=== PATIENT | male | born 1935 | race Caucasian/White ===

== ENCOUNTER 2021-02-03 19:13 | Inpatient (IN) | payer MEDICARE, BC ==
--- NOTE | 2021-02-03 20:03 | ED ---
General Adult HPI - General Chief complaint: Shortness of Breath Stated complaint: WILLIAM Time Seen by Provider: 02/03/21 19:14 Source: patient, family, RN notes reviewed Mode of arrival: ambulatory Limitations: no limitations - History of Present Illness Initial comments: Patient is a pleasant 86-year-old male presenting to the emergency department with difficulty in breathing. Onset of symptoms was just today, several hours ago. No cough. No fever. No chest pain. No leg pain or leg swelling. No history of similar symptoms previously. Patient does have history of heart valve replacement, years ago. Patient is somewhat a poor historian. - Related Data Allergies Allergy/AdvReac Type Severity Reaction Status Date / Time bee venom protein (honey bee) Allergy Severe Swelling Verified 02/03/21 20:11 Review of Systems ROS Statement: Those systems with pertinent positive or pertinent negative responses have been documented in the HPI. ROS Other: All systems not noted in ROS Statement are negative. Constitutional: Denies: fever Eyes: Denies: eye pain ENT: Denies: ear pain Respiratory: Reports: dyspnea. Denies: cough Cardiovascular: Denies: chest pain Endocrine: Reports: fatigue Gastrointestinal: Denies: abdominal pain Genitourinary: Denies: urgency Musculoskeletal: Denies: back pain Skin: Denies: rash Neurological: Denies: weakness Past Medical History Past Medical History: Cancer, Diabetes Mellitus, Hyperlipidemia, Hypertension, Renal Disease Additional Past Medical History / Comment(s): Bladder cancer History of Any Multi-Drug Resistant Organisms: Unobtainable Past Surgical History: Pacemaker Additional Past Surgical History / Comment(s): Abdominal Aortic Aneurysm Past Psychological History: No Psychological Hx Reported Smoking Status: Current every day smoker Past Alcohol Use History: None Reported Past Drug Use History: None Reported General Exam Limitations: no limitations General appearance: alert, in no apparent distress Head exam: Present: normocephalic Eye exam: Present: normal appearance Neck exam: Present: normal inspection Respiratory exam: Present: rales (Bilateral bases) Cardiovascular Exam: Present: regular rate, normal rhythm GI/Abdominal exam: Present: soft. Absent: tenderness Extremities exam: Present: normal inspection. Absent: pedal edema, calf tenderness Neurological exam: Present: alert Psychiatric exam: Present: normal affect, normal mood Skin exam: Present: normal color Course Vital Signs 02/03/21 19:25 Temperature 97.6 F Pulse Rate 85 Respiratory 20 Rate Blood Pressure 155/75 O2 Sat by Pulse 86 L Oximetry EKG Findings - EKG Comments: EKG Findings:: Paced rhythm with a rate of 85. QRS 162. QT 444. QTC 522 left eye axis. Wide QRS complex. Nonspecific ST-T. Medical Decision Making - Medical Decision Making Patient reevaluated and updated. Family present. Case also discussed with practitioner Justine, who will admit covering for Dr. Pack, covering for hospital call. - Lab Data Result diagrams: 02/03/21 20:16 02/03/21 20:16 Lab Results 02/03/21 02/03/21 02/03/21 Range/Units 20:16 20:16 20:16 WBC 8.1 (3.8-10.6) k/uL RBC 3.22 L (4.30-5.90) m/uL Hgb 10.4 L (13.0-17.5) gm/dL Hct 32.2 L (39.0-53.0) % MCV 100.0 (80.0-100.0) fL MCH 32.4 (25.0-35.0) pg MCHC 32.4 (31.0-37.0) g/dL RDW 14.1 (11.5-15.5) % Plt Count 179 (150-450) k/uL MPV 8.0 Neutrophils % 86 % Lymphocytes % 4 % Monocytes % 5 % Eosinophils % 4 % Basophils % 0 % Neutrophils # 7.0 (1.3-7.7) k/uL Lymphocytes # 0.4 L (1.0-4.8) k/uL Monocytes # 0.4 (0-1.0) k/uL Eosinophils # 0.3 (0-0.7) k/uL Basophils # 0.0 (0-0.2) k/uL PT 9.6 (9.0-12.0) sec INR 0.9 (<1.2) APTT 32.8 H (22.0-30.0) sec D-Dimer 4.97 H (<0.60) mg/L FEU Sodium 137 (137-145) mmol/L Potassium 5.1 (3.5-5.1) mmol/L Chloride 113 H (98-107) mmol/L Carbon Dioxide 13 L (22-30) mmol/L Anion Gap 11 mmol/L BUN 64 H (9-20) mg/dL Creatinine 4.05 H (0.66-1.25) mg/dL Est GFR (CKD-EPI)AfAm 15 (>60 ml/min/1.73 sqM) Est GFR (CKD-EPI)NonAf 13 (>60 ml/min/1.73 sqM) Glucose 193 H (74-99) mg/dL Plasma Lactic Acid Michael (0.7-2.0) mmol/L Calcium 9.2 (8.4-10.2) mg/dL Total Bilirubin 0.4 (0.2-1.3) mg/dL AST 17 (17-59) U/L ALT 15 (4-49) U/L Alkaline Phosphatase 101 (38-126) U/L Troponin I (0.000-0.034) ng/mL NT-Pro-B Natriuret Pep pg/mL Total Protein 7.1 (6.3-8.2) g/dL Albumin 3.9 (3.5-5.0) g/dL Coronavirus (PCR) (Not Detectd) 02/03/21 02/03/21 02/03/21 Range/Units 20:16 20:16 20:16 WBC (3.8-10.6) k/uL RBC (4.30-5.90) m/uL Hgb (13.0-17.5) gm/dL Hct (39.0-53.0) % MCV (80.0-100.0) fL MCH (25.0-35.0) pg MCHC (31.0-37.0) g/dL RDW (11.5-15.5) % Plt Count (150-450) k/uL MPV Neutrophils % % Lymphocytes % % Monocytes % % Eosinophils % % Basophils % % Neutrophils # (1.3-7.7) k/uL Lymphocytes # (1.0-4.8) k/uL Monocytes # (0-1.0) k/uL Eosinophils # (0-0.7) k/uL Basophils # (0-0.2) k/uL PT (9.0-12.0) sec INR (<1.2) APTT (22.0-30.0) sec D-Dimer (<0.60) mg/L FEU Sodium (137-145) mmol/L Potassium (3.5-5.1) mmol/L Chloride (98-107) mmol/L Carbon Dioxide (22-30) mmol/L Anion Gap mmol/L BUN (9-20) mg/dL Creatinine (0.66-1.25) mg/dL Est GFR (CKD-EPI)AfAm (>60 ml/min/1.73 sqM) Est GFR (CKD-EPI)NonAf (>60 ml/min/1.73 sqM) Glucose (74-99) mg/dL Plasma Lactic Acid Michael 1.0 (0.7-2.0) mmol/L Calcium (8.4-10.2) mg/dL Total Bilirubin (0.2-1.3) mg/dL AST (17-59) U/L ALT (4-49) U/L Alkaline Phosphatase (38-126) U/L Troponin I 0.047 H* (0.000-0.034) ng/mL NT-Pro-B Natriuret Pep 54106 pg/mL Total Protein (6.3-8.2) g/dL Albumin (3.5-5.0) g/dL Coronavirus (PCR) (Not Detectd) 02/03/21 Range/Units 20:16 WBC (3.8-10.6) k/uL RBC (4.30-5.90) m/uL Hgb (13.0-17.5) gm/dL Hct (39.0-53.0) % MCV (80.0-100.0) fL MCH (25.0-35.0) pg MCHC (31.0-37.0) g/dL RDW (11.5-15.5) % Plt Count (150-450) k/uL MPV Neutrophils % % Lymphocytes % % Monocytes % % Eosinophils % % Basophils % % Neutrophils # (1.3-7.7) k/uL Lymphocytes # (1.0-4.8) k/uL Monocytes # (0-1.0) k/uL Eosinophils # (0-0.7) k/uL Basophils # (0-0.2) k/uL PT (9.0-12.0) sec INR (<1.2) APTT (22.0-30.0) sec D-Dimer (<0.60) mg/L FEU Sodium (137-145) mmol/L Potassium (3.5-5.1) mmol/L Chloride (98-107) mmol/L Carbon Dioxide (22-30) mmol/L Anion Gap mmol/L BUN (9-20) mg/dL Creatinine (0.66-1.25) mg/dL Est GFR (CKD-EPI)AfAm (>60 ml/min/1.73 sqM) Est GFR (CKD-EPI)NonAf (>60 ml/min/1.73 sqM) Glucose (74-99) mg/dL Plasma Lactic Acid Michael (0.7-2.0) mmol/L Calcium (8.4-10.2) mg/dL Total Bilirubin (0.2-1.3) mg/dL AST (17-59) U/L ALT (4-49) U/L Alkaline Phosphatase (38-126) U/L Troponin I (0.000-0.034) ng/mL NT-Pro-B Natriuret Pep pg/mL Total Protein (6.3-8.2) g/dL Albumin (3.5-5.0) g/dL Coronavirus (PCR) Not Detected (Not Detectd) - Radiology Data Radiology results: image reviewed (Chest x-ray shows COPD. Lower lobe infiltrates. Possible pneumonia versus heart failure) Disposition Clinical Impression: Congestive heart failure Disposition: ADMITTED IP TO THIS HOSP Is patient prescribed a controlled substance at d/c from ED?: No Referrals: Nonstaff,Physician [Primary Care Provider] - 1-2 days Decision Time: 21:49
[2021-02-03 20:27] LABS: Basophils % (A) 0 %; Eosinophils # (A) 0.3 k/uL (0-0.7); Eosinophils % (A) 4 %; HCT 32.2 % (39.0-53.0); HGB 10.4 gm/dL (13.0-17.5); Lymphocytes # (A) 0.4 k/uL (1.0-4.8); Lymphocytes % (A) 4 %; MCH 32.4 pg (25.0-35.0); MCHC 32.4 g/dL (31.0-37.0); Monocytes # (A) 0.4 k/uL (0-1.0); Monocytes % (A) 5 %; Neutrophils % (A) 86 %; Platelet Count 179 k/uL (150-450); RBC 3.22 m/uL (4.30-5.90); RDW 14.1 % (11.5-15.5); WBC 8.1 k/uL (3.8-10.6)
[2021-02-03 20:38] LABS: Albumin 3.9 g/dL (3.5-5.0); Calcium 9.2 mg/dL (8.4-10.2); Potassium 5.1 mmol/L (3.5-5.1); Total Bilirubin 0.4 mg/dL (0.2-1.3); Total Protein 7.1 g/dL (6.3-8.2)
[2021-02-03 20:44] LABS: INR 0.9 (<1.2); Partial Thromboplastin Time 32.8 sec (22.0-30.0); Prothrombin Time 9.6 sec (9.0-12.0)
--- NOTE | 2021-02-03 21:22 | XR ---
EXAMINATION TYPE: XR chest 2V DATE OF EXAM: 02/03/2021 COMPARISON: NONE HISTORY: Difficulty breathing TECHNIQUE: 2 views FINDINGS: There is some patchy interstitial and airspace infiltrate in the lower lung lizarraga. Heart s ize is fairly normal. There are sternal wires. There is left axillary pacemaker. There is mild flatte matt of the diaphragm. IMPRESSION: COPD. Lower lobe pulmonary mild infiltrates. This is probably some mild pneumonia. Mild h eart failure not excluded.
[2021-02-03] MEDS ORDERED: ASPIRIN 325 MG TAB PO STA (21:49)
[2021-02-03] MEDS ORDERED: HEPARIN SODIUM 1,000 UN/ML (10ML VL) IV PRN (21:54)
[2021-02-03] MEDS ORDERED: HEPARIN SODIUM 1,000 UN/ML (10ML VL) IV ONE (21:54)
[2021-02-03] MEDS ORDERED: cefTRIAXone IN SWFI 1,000 MG/10 ML SYRINGE IVP STA (21:56)
[2021-02-03] MEDS ORDERED: HEPARIN SOD,PORK IN 0.45% NACL 25,000 UNIT in 0.45% NACL 1 250ML.BAG IV SCH (22:00)
[2021-02-03] MEDS: NITROGLYCERIN OINT 1 INCH/GM PACKET TOPICAL SCH (22:42)
[2021-02-03] MEDS: FUROSEMIDE 10 MG/ML 4 ML VIAL IV SCH (22:45)
[2021-02-04] MEDS: FUROSEMIDE 10 MG/ML 4 ML VIAL IV SCH ×2 (05:45→20:46)
[2021-02-04] MEDS: ASPIRIN 325 MG TAB PO SCH (09:20)
[2021-02-04] MEDS: NITROGLYCERIN OINT 1 INCH/GM PACKET TOPICAL SCH ×4 (09:20→20:46)
--- NOTE | 2021-02-04 09:27 | NM ---
EXAMINATION TYPE: NM pul vent and perfuse DATE OF EXAM: 02/04/2021 COMPARISON: NONE HISTORY: Shortness of breath TECHNIQUE: Utilizing inhalation of 68.1 mCi Tc 99m DTPA aerosol and intravenous injection of 5 mCi o f Tc 99m MAA, ventilation and perfusion images are acquired post injection in multiple projections. FINDINGS: There is a large matched ventilation/perfusion defect in the right upper lobe. There are a few scatte red smaller matched defects bilaterally. IMPRESSION: Nondiagnostic or low to intermediate probability of pulmonary embolism.
[2021-02-04 12:01] LABS: Basophils % (A) 0 %; Eosinophils # (A) 0.3 k/uL (0-0.7); Eosinophils % (A) 4 %; HCT 30.5 % (39.0-53.0); HGB 9.6 gm/dL (13.0-17.5); Lymphocytes # (A) 0.4 k/uL (1.0-4.8); Lymphocytes % (A) 5 %; MCH 31.9 pg (25.0-35.0); MCHC 31.5 g/dL (31.0-37.0); MCV 101.5 fL (80.0-100.0); Macrocytosis Slight; Mean Platelet Volume 8.3; Monocytes # (A) 0.4 k/uL (0-1.0); Monocytes % (A) 5 %; Neutrophils # (A) 6.1 k/uL (1.3-7.7); Neutrophils % (A) 84 %; Platelet Count 183 k/uL (150-450); RDW 14.2 % (11.5-15.5); WBC 7.3 k/uL (3.8-10.6)
[2021-02-04 13:01] VITALS: BMI 25.8
[2021-02-04] MEDS ORDERED: ACETAMINOPHEN TAB 325 MG TAB PO PRN (13:11)
[2021-02-04 13:14] LABS: Calcium 8.8 mg/dL (8.4-10.2); Potassium 4.8 mmol/L (3.5-5.1)
[2021-02-04] MEDS ORDERED: traMADol 50 MG TAB PO PRN (13:17)
[2021-02-04] MEDS ORDERED: MELATONIN 5 MG TABLET PO PRN (13:18)
[2021-02-04] MEDS: DEXTROSE 5% IN WATER 1,000 ML with SODIUM BICARB (1 MEQ/ML) 150 ML IV SCH (13:36)
[2021-02-04] MEDS: METOPROLOL TARTRATE 50 MG TAB PO SCH ×2 (13:42→20:46)
--- NOTE | 2021-02-04 14:39 | CONS ---
CONSULTATION REASON FOR CONSULT: Renal failure. HISTORY OF PRESENT ILLNESS: Patient is an 86-year-old male with CKD stage 4, being followed out of [facility]. The patient was admitted to the hospital with complaints of shortness of breath. He denied any fevers, chills or cough. The chest x-ray showed possible pneumonia and evidence of pulmonary vascular congestion. Patient has received IV Lasix and he states he is feeling much better. His troponin has been elevated at 0.05 and 0.069. The patient's CO2 was at 13. He denied any significant diarrhea prior to admission. I do not see sodium bicarb on his home med list. The patient states that he has discussed dialysis before, but he is not keen on it given his advanced age. At this time, we are not sure of his previous creatinine as we do not have any labs available in the computer. Serum creatinine yesterday was 4.0 with CO2 of 13 and potassium of 5.1. The patient states he is voiding. PAST MEDICAL HISTORY: Significant for type 2 diabetes, hyperlipidemia, hypertension, history of bladder cancer, history of pacemaker placement. SOCIAL HISTORY: Positive for smoking. No history of drug abuse or alcohol abuse. MEDICATIONS: Medications prior to admission included: Zyloprim, Toprol, Pyridium, Norvasc, Januvia, vitamin D3, insulin and Detrol. EXAMINATION: Patient is comfortable, awake. He is not in any acute distress. Blood pressure 133/69, heart rate 86 per minute. He is afebrile. Examination of the heart S1, S2. Examination of lungs decreased breath sounds at the bases. Abdomen is soft, nontender. Examination of the lower extremities shows 1+ edema bilaterally. PERFUME COMPOUNDER exam is grossly intact. LABS: Show sodium 137, potassium 5.1, chloride 113, CO2 is 13, BUN 64, creatinine 4.05, hemoglobin 10.4 from 02/03/2021, troponin 0.047, PCR for alanis virus not detected. ASSESSMENT: 1. Chronic kidney disease stage 4, baseline creatinine not known. The patient follows with Dr. Villagomez out of [facility]. 2. Metabolic acidosis associated with advanced renal failure. We will start patient on sodium bicarb drip. He is not maintained on oral sodium bicarb at home. 3. Possible acute kidney injury, cardiorenal. 4. Congestive heart failure volume overload. Continue with IV Lasix. Decrease dose to q.12 hours. 5. Anemia of chronic disease. PLAN: Decrease Lasix to q.12 hours. Repeat labs today. Add IV bicarb at 50 mL an hour and repeat labs in a.m. The patient is not too keen on renal replacement therapy. However, he is advised to followup visit with his primary cable stretcher and tester, post discharge to discuss renal replacement therapy. No acute indication for starting dialysis. MMODL / IJN: [id number] /
--- NOTE | 2021-02-04 15:07 | P.HPIM ---
History of Present Illness Patient is a pleasant 81-year-old male with history of chronic kidney disease stage IV came in with compensative shortness of breath which has been going on for couple days without any fever chills patient denied any cough. Patient had a chest x-ray which showed possibility of CHF there is infiltrate in the lower lung lizarraga because of which there is a concern about pneumonia because of which I'm obtaining a pro-calcitonin level although weakly patient doesn't appear to have pneumonia. has a minimally elevated troponin and patient bioprosthetic aortic valve replacement in the past. Patient is not aware of history of congestive heart failure patient bicarbonate is extremely low because of which patient is receiving IV bicarbonate supplementation along with IV Lasix patient doesn't have any significant JVD or pedal edema but does have highly elevated BNP of around 22,000. Patient is presently on high flow oxygen patient does have a pacemaker. REVIEW OF SYSTEMS: CONSTITUTIONAL: No fever, no malaise, no fatigue. HEENT: No recent visual problems or hearing problems. Denied any sore throat. CARDIOVASCULAR: No chest pain, orthopnea, PND, no palpitations, no syncope. PULMONARY: As mentioned in HPI GASTROINTESTINAL: No diarrhea, no nausea, no vomiting, no abdominal pain. NEUROLOGICAL: No headaches, no weakness, no numbness. HEMATOLOGICAL: Denies any bleeding or petechiae. GENITOURINARY: Denies any burning micturition, frequency, or urgency. MUSCULOSKELETAL/RHEUMATOLOGICAL: Denies any joint pain, swelling, or any muscle pain. ENDOCRINE: Denies any polyuria or polydipsia. The rest of the 14-point review of systems is negative. PHYSICAL EXAMINATION: GENERAL: The patient is alert and oriented x3, not in any acute distress. Well developed, well nourished. HEENT: Pupils are round and equally reacting to light. EOMI. No scleral icterus. No conjunctival pallor. Normocephalic, atraumatic. No pharyngeal erythema. No thyromegaly. CARDIOVASCULAR: S1 and S2 present. No murmurs, rubs, or gallops. PULMONARY: Chest is clear to auscultation, no wheezing or crackles. ABDOMEN: Soft, nontender, nondistended, normoactive bowel sounds. No palpable organomegaly. MUSCULOSKELETAL: No joint swelling or deformity. EXTREMITIES: No cyanosis, clubbing, or pedal edema. NEUROLOGICAL: Gross neurological examination did not reveal any focal deficits. SKIN: No rashes. Assessment and plan -Acute hypoxic respiratory failure requiring 15 L of oxygen/nonrebreather. Patient most probably has a start failure exacerbation no clinical evidence of pneumonia will obtain a level patient will be continued on iv lasix. -metabolic acidosis secondary to renal failure chronic kidney disease patient is on bicarbonate supplementation iv -ulcerative cardiac renal syndrome -Congestive heart failure: EF is unknown will obtain an echocardiogram continue with IV Lasix -Type 2 diabetes mellitus -Hyperlipidemia -Hypertension -Diabetic nephropathy -Nicotine use: Counseling was provided DVT prophylaxis: Subcutaneous heparin Past Medical History Past Medical History: Cancer, Diabetes Mellitus, Hyperlipidemia, Hypertension, Renal Disease Additional Past Medical History / Comment(s): Bladder cancer History of Any Multi-Drug Resistant Organisms: Unobtainable Past Surgical History: Pacemaker Additional Past Surgical History / Comment(s): Abdominal Aortic Aneurysm Type of Cardiac Device: Permanent Pacemaker Device Placement Date:: 12/2020 Past Psychological History: No Psychological Hx Reported Smoking Status: Current every day smoker Past Alcohol Use History: None Reported Past Drug Use History: None Reported Medications and Allergies Home Medications Medication Instructions Recorded Confirmed Type Allopurinol [Zyloprim] 100 mg PO DAILY 02/03/21 02/03/21 History Cholecalciferol [Vitamin D3 (25 25 mcg PO DAILY 02/03/21 02/03/21 History Mcg = 1000 Iu)] Insulin Detemir [Levemir Flextouch 20 units SQ HS 02/03/21 02/03/21 History Pen] Metoprolol Succinate (ER) [Toprol 25 mg PO DAILY 02/03/21 02/03/21 History Xl] Phenazopyridine [Pyridium] 200 mg PO BID 02/03/21 02/03/21 History Tolterodine ER [Detrol LA] 4 mg PO DAILY 02/03/21 02/03/21 History amLODIPine [Norvasc] 5 mg PO DAILY 02/03/21 02/03/21 History sitaGLIPtin PHOSPHATE [Januvia] 25 mg PO DAILY 02/03/21 02/03/21 History Allergies Allergy/AdvReac Type Severity Reaction Status Date / Time bee venom protein (honey bee) Allergy Severe Swelling Verified 02/03/21 22:53 Physical Exam Vitals: Vital Signs Temp Pulse Pulse Resp BP BP Pulse Ox 02/04/21 12:00 70 16 126/75 95 02/04/21 08:00 86 18 133/69 90 L 02/04/21 04:00 97.8 F 89 22 152/69 93 L 02/04/21 02:31 92 L 02/04/21 00:00 97.2 F L 85 24 149/65 88 L 02/03/21 23:46 88 17 141/76 92 L 02/03/21 21:54 89 17 162/83 92 L 02/03/21 19:25 97.6 F 85 20 155/75 86 L Intake and Output 02/04/21 02/04/21 02/04/21 06:59 14:59 22:59 Intake Total 240 420 Output Total 525 150 Balance -285 270 Intake: Oral 240 420 Output: Urine 525 150 Other: Voiding Method Urinal Urinal # Voids 1 Weight 77.111 kg 77.111 kg Results CBC & Chem 7: 02/04/21 10:59 02/04/21 10:59 Labs: Abnormal Lab Results - Last 24 Hours (Table) 02/03/21 02/03/21 02/03/21 Range/Units 20:16 20:16 20:16 RBC 3.22 L (4.30-5.90) m/uL Hgb 10.4 L (13.0-17.5) gm/dL Hct 32.2 L (39.0-53.0) % MCV (80.0-100.0) fL Lymphocytes # 0.4 L (1.0-4.8) k/uL APTT 32.8 H (22.0-30.0) sec D-Dimer 4.97 H (<0.60) mg/L FEU Chloride 113 H (98-107) mmol/L Carbon Dioxide 13 L (22-30) mmol/L BUN 64 H (9-20) mg/dL Creatinine 4.05 H (0.66-1.25) mg/dL Glucose 193 H (74-99) mg/dL Troponin I (0.000-0.034) ng/mL Procalcitonin (0.02-0.09) ng/mL 02/03/21 02/03/21 02/03/21 Range/Units 20:16 22:21 22:21 RBC (4.30-5.90) m/uL Hgb (13.0-17.5) gm/dL Hct (39.0-53.0) % MCV (80.0-100.0) fL Lymphocytes # (1.0-4.8) k/uL APTT (22.0-30.0) sec D-Dimer (<0.60) mg/L FEU Chloride (98-107) mmol/L Carbon Dioxide (22-30) mmol/L BUN (9-20) mg/dL Creatinine (0.66-1.25) mg/dL Glucose (74-99) mg/dL Troponin I 0.047 H* 0.050 H* (0.000-0.034) ng/mL Procalcitonin 0.26 H (0.02-0.09) ng/mL 02/04/21 02/04/21 02/04/21 Range/Units 02:06 10:59 10:59 RBC 3.00 L (4.30-5.90) m/uL Hgb 9.6 L (13.0-17.5) gm/dL Hct 30.5 L (39.0-53.0) % MCV 101.5 H (80.0-100.0) fL Lymphocytes # 0.4 L (1.0-4.8) k/uL APTT 164.9 H* (22.0-30.0) sec D-Dimer (<0.60) mg/L FEU Chloride (98-107) mmol/L Carbon Dioxide (22-30) mmol/L BUN (9-20) mg/dL Creatinine (0.66-1.25) mg/dL Glucose (74-99) mg/dL Troponin I 0.069 H* (0.000-0.034) ng/mL Procalcitonin (0.02-0.09) ng/mL 02/04/21 Range/Units 10:59 RBC (4.30-5.90) m/uL Hgb (13.0-17.5) gm/dL Hct (39.0-53.0) % MCV (80.0-100.0) fL Lymphocytes # (1.0-4.8) k/uL APTT (22.0-30.0) sec D-Dimer (<0.60) mg/L FEU Chloride 114 H (98-107) mmol/L Carbon Dioxide 14 L (22-30) mmol/L BUN 62 H (9-20) mg/dL Creatinine 4.19 H (0.66-1.25) mg/dL Glucose 182 H (74-99) mg/dL Troponin I (0.000-0.034) ng/mL Procalcitonin (0.02-0.09) ng/mL Thrombosis Risk Factor Assmnt - Choose All That Apply Each Factor Represents 1 point: Swollen legs (current) Each Risk Factor Represents 3 Points: Age 75 years or older Thrombosis Risk Factor Assessment Total Risk Factor Score: 4 Thrombosis Risk Factor Assessment Level: Moderate Risk
--- NOTE | 2021-02-04 15:15 | P.CRDCN ---
History of Present Illness Consult date: 02/04/21 Requesting physician: Artie Choe Consult reason: congestive heart failure Chief complaint: Shortness of breath History of present illness: HISTORY OF PRESENTING ILLNESS This is a pleasant 86-year-old male past medical history significant for congestive heart failure, valvular replacement, permanent pacemaker, hypertension, hyperlipidemia, abdominal aortic aneurysm, chronic kidney disease stage IV, diabetes. Patient is establishing with a new extension service advisor in [place] Dr Guevara. Patient states he had a valve replacement with Dr. López in 2004. We have been asked to see in consultation for congestive heart failure and dyspnea. Patient was having increased shortness of breath and was brought into the ER by his family. Patient is examined at the bedside today wearing a nonrebreather with mild labored breathing. Patient is a somewhat poor historian. Patient's troponins were elevated at 0.047, 0.050, 0.069. Patient is currently on heparin drip for elevated troponins. Patient's chest x-ray showed COPD with mild infiltrates and possible pneumonia. Pulmonary perfusion imaging completed negative for pulmonary embolism. Nephrology is following for chronic kidney failure at start patient on bicarb drip and IV Lasix. DIAGNOSTICS EKG reveals ventricular pacing Laboratory reviewed, patient's WBCs 7.3, hemoglobin 9.6, d-dimer 4.79, potassium 4.8, BUN 62, creatinine 4.19, elevated troponins Review of Systems REVIEW OF SYSTEMS At the time of my exam: CONSTITUTIONAL: Denies fever or chills. EYES: Negative for vision changes ENT: Negative for hearing loss CARDIOVASCULAR: Denies chest pain, shortness of breath, diaphoresis, orthopnea, PND or palpitations. VASCULAR: Denies edema RESPIRATORY: Denies cough. GASTROINTESTINAL: Denies abdominal pain, diarrhea, constipation, nausea or vomiting. MUSCULOSKELETAL: Denies myalgias. NEUROLOGIC: Denies numbness, tingling, headache or weakness. ENDOCRINE: Denies fatigue, weight change, polydipsia or polyurina. GENITOURINARY: Denies burning, hematuria or urgency with micturation. HEMATOLOGIC: Denies history of anemia or bleeding. DERMATOLOGY: Denies rash or skin sores PSYCH: Negative for depression or hallucinations. Past Medical History Past Medical History: Cancer, Diabetes Mellitus, Hyperlipidemia, Hypertension, Renal Disease Additional Past Medical History / Comment(s): Bladder cancer History of Any Multi-Drug Resistant Organisms: Unobtainable Past Surgical History: Pacemaker Additional Past Surgical History / Comment(s): Abdominal Aortic Aneurysm Type of Cardiac Device: Permanent Pacemaker Device Placement Date:: 12/2020 Past Psychological History: No Psychological Hx Reported Smoking Status: Current every day smoker Past Alcohol Use History: None Reported Past Drug Use History: None Reported Medications and Allergies Home Medications Medication Instructions Recorded Confirmed Type Allopurinol [Zyloprim] 100 mg PO DAILY 02/03/21 02/03/21 History Cholecalciferol [Vitamin D3 (25 25 mcg PO DAILY 02/03/21 02/03/21 History Mcg = 1000 Iu)] Insulin Detemir [Levemir Flextouch 20 units SQ HS 02/03/21 02/03/21 History Pen] Metoprolol Succinate (ER) [Toprol 25 mg PO DAILY 02/03/21 02/03/21 History Xl] Phenazopyridine [Pyridium] 200 mg PO BID 02/03/21 02/03/21 History Tolterodine ER [Detrol LA] 4 mg PO DAILY 02/03/21 02/03/21 History amLODIPine [Norvasc] 5 mg PO DAILY 02/03/21 02/03/21 History sitaGLIPtin PHOSPHATE [Januvia] 25 mg PO DAILY 02/03/21 02/03/21 History Allergies Allergy/AdvReac Type Severity Reaction Status Date / Time bee venom protein (honey bee) Allergy Severe Swelling Verified 02/03/21 22:53 Physical Exam Vitals: Vital Signs Temp Pulse Pulse Resp BP BP Pulse Ox 02/04/21 12:00 70 16 126/75 95 02/04/21 08:00 86 18 133/69 90 L 02/04/21 04:00 97.8 F 89 22 152/69 93 L 02/04/21 02:31 92 L 02/04/21 00:00 97.2 F L 85 24 149/65 88 L 02/03/21 23:46 88 17 141/76 92 L 02/03/21 21:54 89 17 162/83 92 L 02/03/21 19:25 97.6 F 85 20 155/75 86 L Intake and Output 02/03/21 02/04/21 02/04/21 22:59 06:59 14:59 Intake Total 240 420 Output Total 525 150 Balance -285 270 Intake: Oral 240 420 Output: Urine 525 150 Other: Voiding Method Urinal Urinal # Voids 1 Weight 77.111 kg 77.111 kg 77.111 kg PHYSICAL EXAMINATION Blood pressure 129/60 heart rate 83 afebrile and maintaining oxygen saturation on 94% on room air. CONSTITUTIONAL: No apparent distress. HEENT: Head is normocephalic. Pupils are equal, round. Sclerae anicteric. Mucous membranes of the mouth are moist. NECK: No JVD. No carotid bruit. RESPIRATORY: Lungs are clear to auscultation. No chest wall tenderness is noted on palpation or with deep breathing. CARDIAC: Irregular rate and rhythm. S1, S2 heard. No murmurs, gallops or rub. ABDOMEN: Soft, nontender. EXTREMITIES: 2+ peripheral pulses, no lower extremity edema and no calf tenderness. NEUROLOGIC EXAMINATION: Patient is awake, alert and oriented x3. INTEGUMENTARY: Warm, absent for rashes or sores PSYCH: Orientated to person, place, time, mood appropriate PSYCH: Negative for depression or hallucinations. Results 02/04/21 10:59 02/04/21 10:59 Cardiac Enzymes 02/03/21 02/03/21 02/03/21 Range/Units 20:16 20:16 22:21 AST 17 (17-59) U/L Troponin I 0.047 H* 0.050 H* (0.000-0.034) ng/mL 02/04/21 Range/Units 02:06 AST (17-59) U/L Troponin I 0.069 H* (0.000-0.034) ng/mL Coagulation 02/03/21 02/04/21 Range/Units 20:16 10:59 PT 9.6 (9.0-12.0) sec APTT 32.8 H 164.9 H* (22.0-30.0) sec CBC 02/03/21 02/04/21 Range/Units 20:16 10:59 WBC 8.1 7.3 (3.8-10.6) k/uL RBC 3.22 L 3.00 L (4.30-5.90) m/uL Hgb 10.4 L 9.6 L (13.0-17.5) gm/dL Hct 32.2 L 30.5 L (39.0-53.0) % Plt Count 179 183 (150-450) k/uL Comprehensive Metabolic Panel 02/03/21 02/04/21 Range/Units 20:16 10:59 Sodium 137 139 (137-145) mmol/L Potassium 5.1 4.8 (3.5-5.1) mmol/L Chloride 113 H 114 H (98-107) mmol/L Carbon Dioxide 13 L 14 L (22-30) mmol/L BUN 64 H 62 H (9-20) mg/dL Creatinine 4.05 H 4.19 H (0.66-1.25) mg/dL Glucose 193 H 182 H (74-99) mg/dL Calcium 9.2 8.8 (8.4-10.2) mg/dL AST 17 (17-59) U/L ALT 15 (4-49) U/L Alkaline Phosphatase 101 (38-126) U/L Total Protein 7.1 (6.3-8.2) g/dL Albumin 3.9 (3.5-5.0) g/dL Current Medications Generic Name Dose Route Start Last Admin Trade Name Freq PRN Reason Stop Dose Admin Acetaminophen 650 mg 02/04/21 13:11 02/04/21 13:35 Acetaminophen Tab 325 Mg Tab PO 650 mg Q4HR PRN Administration Fever and/ or MILD Pain Aspirin 325 mg 02/04/21 09:00 02/04/21 09:20 Aspirin 325 Mg Tab PO 325 mg DAILY LUCIO Administration Furosemide 40 mg 02/04/21 21:00 Furosemide 10 Mg/Ml 4 Ml Vial IV Q12HR [facility] Heparin Sodium (Porcine) 5,000 unit 02/04/21 16:00 Heparin Sodium,Porcine/Pf 5,000 Unit/0.5 Ml Syringe SQ Q8HR [facility] Sodium Bicarbonate 150 ml/ 1,150 mls @ 50 mls/hr 02/04/21 10:00 02/04/21 13:36 Dextrose/Water IV 50 mls/hr .Q23H LUCIO Administration Melatonin 5 mg 02/04/21 13:18 Melatonin 5 Mg Tablet PO HS PRN Insomnia Metoprolol Tartrate 50 mg 02/04/21 13:30 02/04/21 13:42 Metoprolol Tartrate 50 Mg Tab PO 50 mg BID LUCIO Administration Nitroglycerin 1 inch 02/03/21 22:00 02/04/21 12:00 Nitroglycerin Oint 1 Inch/Gm Packet TOPICAL 1 inch QID LUCIO Administration Sodium Chloride 10 ml 02/04/21 09:00 02/04/21 09:21 Sodium Chloride 0.9% Flush 10 Ml Syringe IV 10 ml BID LUCIO Administration Tramadol HCl 50 mg 02/04/21 13:17 Tramadol 50 Mg Tab PO QID PRN MODERATE Pain/Discomfort Intake and Output 02/03/21 02/04/21 02/04/21 22:59 06:59 14:59 Intake Total 240 420 Output Total 525 150 Balance -285 270 Intake: Oral 240 420 Output: Urine 525 150 Other: Voiding Method Urinal Urinal # Voids 1 Weight 77.111 kg 77.111 kg 77.111 kg Patient Weight 02/05/21 06:59 Weight 77.111 kg 02/04/21 10:59 02/04/21 10:59 Assessment and Plan Assessment: ASSESSMENT Acute on chronic congestive heart failure Elevated troponins related to renal failure Chronic kidney disease stage IV Diabetes Hypertension hyperlipidemia Plan: PLAN obtain a 2-D echo to evaluate myocardial function and a static heart valve Will discontinue heparin drip and start patient on subcu heparin every 8 hours Will start patient metoprolol tartrate 50 mg twice a day Continue to follow with nephrology for chronic kidney failure Nurse Practitioner note has been reviewed, I agree with a documented findings and plan of care. Patient was seen and examined.
[2021-02-04] MEDS: HEPARIN SODIUM,PORCINE/PF 5,000 UNIT/0.5 ML SYRINGE SQ SCH ×2 (16:30→20:46)
[2021-02-05] MEDS: HEPARIN SODIUM,PORCINE/PF 5,000 UNIT/0.5 ML SYRINGE SQ SCH ×4 (00:30→23:22)
[2021-02-05] MEDS: ASPIRIN 325 MG TAB PO SCH (08:06)
[2021-02-05] MEDS: METOPROLOL TARTRATE 50 MG TAB PO SCH ×2 (08:06→20:43)
[2021-02-05] MEDS: NITROGLYCERIN OINT 1 INCH/GM PACKET TOPICAL SCH ×4 (08:06→20:44)
[2021-02-05] MEDS: FUROSEMIDE 10 MG/ML 4 ML VIAL IV SCH (08:06)
[2021-02-05 08:10] LABS: Glucose,Whole Blood 171 mg/dL (75-99)
[2021-02-05] MEDS ORDERED: OXYBUTYNIN 10 MG TAB.ER.24 PO SCH (09:00)
[2021-02-05] MEDS ORDERED: METOPROLOL SUCCINATE (ER) 25 MG TAB.ER.24H PO SCH (09:00)
[2021-02-05 09:38] LABS: Calcium 8.8 mg/dL (8.4-10.2); Potassium 4.6 mmol/L (3.5-5.1)
[2021-02-05] MEDS: amLODIPine 5 MG TAB PO SCH (10:12)
[2021-02-05] MEDS: LINAGLIPTIN 5 MG TABLET PO SCH (10:12)
[2021-02-05] MEDS: OXYBUTYNIN 10 MG TAB.ER.24 PO SCH (10:12)
[2021-02-05] MEDS: CHOLECALCIFEROL 25 MCG (1000 IU) TABLET PO SCH (10:12)
[2021-02-05] MEDS: INSULIN ASPART (NovoLOG) 100 UNIT/ML VIAL SQ SCH ×4 (10:13→20:44)
[2021-02-05] MEDS: allopurinoL 100 MG TAB PO SCH (10:13)
--- NOTE | 2021-02-05 10:58 | XR ---
EXAMINATION TYPE: XR chest 2V DATE OF EXAM: 02/05/2021 COMPARISON: 02/03/2021 HISTORY: Shortness of breath TECHNIQUE: Frontal and lateral views of the chest are obtained. FINDINGS: Scattered senescent parenchymal changes noted. Hyperinflation compatible with COPD. Persistent right lower lobe infiltrate. Improving aeration left lower lobe. Heart size is stable. Mediastinal structures are stable and grossly unremarkable. No evidence for hilar prominence. Degenerative changes dorsal spine. IMPRESSION: 1. Persistent right lower lobe infiltrate. Improving aeration left lower lobe.
--- NOTE | 2021-02-05 11:30 | ECHOF ---
Referral Reason:Chf MEASUREMENTS -------- HEIGHT: 172.7 cm WEIGHT: 77.1 kg BP: 126/75 RVIDd: 3.9 cm (< 3.3) IVSd: 1.7 cm (0.6 - 1.1) LVIDd: 4.7 cm (3.9 - 5.3) LVPWd: 1.8 cm (0.6 - 1.1) IVSs: 2.0 cm LVIDs: 2.9 cm LVPWs: 2.1 cm LAESV Index (A-L): 34.44 ml/m MV EXCURSION: 13.297 mm (> 18.000) MV EF SLOPE: 85 mm/s (70 - 150) EPSS: 1.0 cm MV E Elpidio: 1.31 m/s MV DecT: 178 ms MV A Elpidio: 0.98 m/s MV E/A Ratio: 1.33 FINDINGS -------- Sinus rhythm. This was a technically adequate study. The left ventricular size is normal. There is severe concentric left ventricular hypertrophy. Ove rall left ventricular systolic function is low-normal with, an EF between 50 - 55 %. Septal wall mo tion is delayed and consistent with prior cardiac surgery. The right ventricle is normal in size. LA is moderately dilated 34-39 ml/m2 The right atrial size is normal. Electronic pacemaker lead seen in the right atrial cavity. Interatrial and interventricular septum intact. . Moderate mitral annular calcification present. Mild mitral regurgitation is present. Mild tricuspid regurgitation present. There is no evidence of pulmonary hypertension. The right v entricular systolic pressure, as measured by Doppler, is {RVSP}. There is no pulmonic regurgitation present. The aortic root size is normal. IVC Not well visulized. There is no pericardial effusion. CONCLUSIONS -------- 1. The left ventricular size is normal. 2. There is severe concentric left ventricular hypertrophy. 3. Overall left ventricular systolic function is low-normal with, an EF between 50 - 55 %. 4. LA is moderately dilated 34-39 ml/m2 5. Moderate mitral annular calcification present. 6. Mild mitral regurgitation is present. 7. Prosthetic valve in aortic position - not wel seem EQUITY HOLDER: Halle Boss [facility]
[2021-02-05] MEDS: DEXTROSE 5% IN WATER 1,000 ML with SODIUM BICARB (1 MEQ/ML) 150 ML IV SCH (11:36)
[2021-02-05 11:41] LABS: Glucose,Whole Blood 158 mg/dL (75-99)
[2021-02-05] MEDS: SODIUM BICARBONATE TAB 650 MG TAB PO SCH ×3 (12:10→20:43)
--- NOTE | 2021-02-05 13:16 | P.PN ---
Subjective Patient is a pleasant 81-year-old male with history of chronic kidney disease stage IV came in with compensative shortness of breath which has been going on for couple days without any fever chills patient denied any cough. Patient had a chest x-ray which showed possibility of CHF there is infiltrate in the lower lung lizarraga because of which there is a concern about pneumonia because of which I'm obtaining a pro-calcitonin level although weakly patient doesn't appear to have pneumonia. has a minimally elevated troponin and patient bio prosthetic aortic valve replacement in the past. Patient is not aware of history of congestive heart failure patient bicarbonate is extremely low because of which patient is receiving IV bicarbonate supplementation along with IV Lasix patient doesn't have any significant JVD or pedal edema but does have highly elevated BNP of around 22,000. Patient is presently on high flow oxygen patient does have a pacemaker. 02/05/2021 Patient is a clinically doing much better this time patient's pro calcitonin is not consistent with pneumonia patient respiratory status is much better today patient is feeling better wanted to go home. Patient remains on 4 L of oxygen pulmonology valid the patient patient to is believed to have emphysema CT of the chest is being obtained. Patient remains on IV Lasix. echo showed normal ejection fraction. Constitutional: Denied any fatigue denied any fever. Cardio vascular: denied any chest pain, palpitations Gastrointestinal denied any nausea vomiting Pulmonary: Denied any shortness of breath cough Neurologic denied any new focal deficits All inpatient medications were reviewed and appropriate changes in these medications as dictated in the interval history and assessment and plan. PHYSICAL EXAMINATION: GENERAL: The patient is alert and oriented x3, not in any acute distress. Well developed, well nourished. HEENT: Pupils are round and equally reacting to light. EOMI. No scleral icterus. No conjunctival pallor. Normocephalic, atraumatic. No pharyngeal erythema. No thyromegaly. CARDIOVASCULAR: S1 and S2 present. No murmurs, rubs, or gallops. PULMONARY: Chest is clear to auscultation, no wheezing or crackles. ABDOMEN: Soft, nontender, nondistended, normoactive bowel sounds. No palpable organomegaly. MUSCULOSKELETAL: No joint swelling or deformity. EXTREMITIES: No cyanosis, clubbing, or pedal edema. NEUROLOGICAL: Gross neurological examination did not reveal any focal deficits. SKIN: No rashes. Assessment and plan -Acute hypoxic respiratory failure this is pretty status significant improved and patient is presently on 4 L of oxygen patient does have a emphysema. Patient pro calcitonin is not consistent with pneumonia. CT of the chest is being obtained and the -metabolic acidosis secondary to renal failure chronic kidney disease -cardiorenal syndrome -Congestive heart failure: Probably chronic diastolic dysfunction with acute exacerbation patient had normal ejection fraction continue with IV Lasix -Type 2 diabetes mellitus -Hyperlipidemia -Hypertension -Diabetic nephropathy -Nicotine use: Counseling was provided DVT prophylaxis: Subcutaneous heparin Objective - Vital Signs Vital signs: Vital Signs Temp 97.7 F 02/05/21 08:00 Pulse 78 02/05/21 08:00 Resp 17 02/05/21 08:00 BP 161/70 02/05/21 08:00 Pulse Ox 96 02/05/21 08:00 Intake & Output 02/04/21 02/05/21 02/05/21 18:59 06:59 18:59 Intake Total 600 180 Output Total 150 200 Balance 450 -200 180 Weight 77.111 kg 74.8 kg Intake: Oral 600 180 Output: Urine 150 200 Other: Voiding Method Urinal Urinal Urinal # Voids 0 3 - Labs CBC & Chem 7: 02/04/21 10:59 02/05/21 07:31 Labs: Abnormal Lab Results - Last 24 Hours (Table) 02/04/21 02/04/21 02/04/21 Range/Units 10:59 10:59 10:59 APTT 164.9 H* (22.0-30.0) sec Chloride 114 H (98-107) mmol/L Carbon Dioxide 14 L (22-30) mmol/L BUN 62 H (9-20) mg/dL Creatinine 4.19 H (0.66-1.25) mg/dL Glucose 182 H (74-99) mg/dL POC Glucose (mg/dL) (75-99) mg/dL Procalcitonin 0.26 H (0.02-0.09) ng/mL 02/05/21 02/05/21 02/05/21 Range/Units 07:31 08:09 11:38 APTT (22.0-30.0) sec Chloride 113 H (98-107) mmol/L Carbon Dioxide 13 L (22-30) mmol/L BUN 64 H (9-20) mg/dL Creatinine 4.18 H (0.66-1.25) mg/dL Glucose 175 H (74-99) mg/dL POC Glucose (mg/dL) 171 H 158 H (75-99) mg/dL Procalcitonin (0.02-0.09) ng/mL Microbiology - Last 24 Hours (Table) 02/03/21 22:21 Blood Culture Gram Stain - Preliminary Blood Blood Culture - Preliminary Coagulase Negative Staph 02/03/21 22:43 Blood Culture - Preliminary Blood No Growth after 24 hours 02/03/21 22:21 Blood Culture - Final Blood
--- NOTE | 2021-02-05 13:32 | PN ---
PROGRESS NOTE The patient is seen for followup for chronic kidney disease, baseline creatinine not known. Serum creatinine staying at about 4.1 mg/dL. The patient was admitted to the hospital with shortness of breath and congestive heart failure exacerbation. Chest x- ray from today however does not show significant pulmonary vascular congestion. The patient has been maintained on IV Lasix and he states he is feeling better. Patient has also been severely acidotic for which he was started on IV bicarb which was started yesterday and his CO2 remains low today and oral sodium bicarb has been added as well. Patient states that he feels much better and wants to go home. He is maintained on oxygen at 4 L and he normally did not use oxygen at home. The patient has been afebrile. Blood culture grew coagulase-negative Staph from 02/03, one out of two blood cultures. I do not see any antibiotics. PHYSICAL EXAMINATION: On examination today, blood pressure is 161/70, heart rate 78 per minute. Patient is afebrile. Examination of the heart S1, S2. Examination of lungs decreased breath sounds at the bases. Wheezing is heard bilaterally. Abdomen is soft, nontender. Examination of lower extremities shows no edema. HUMAN RESOURCE ANALYST exam is grossly intact. LABS: Show sodium 138, potassium 4.6, chloride 113, CO2 is 13, BUN 64, creatinine 4.18, hemoglobin 9.6. ASSESSMENT: 1. Chronic kidney disease stage 4. Baseline creatinine not known. Serum creatinine staying the same at 4.1 mg/dL for last couple of days. The patient has been diuresed after initial admission. His repeat chest x-ray does not show any significant congestive heart failure. I will decrease his Lasix. I will continue with the bicarb drip given the severe metabolic acidosis and add oral sodium bicarb. The shortness of breath may be related to his chronic obstructive pulmonary disease exacerbation. 2. Severe metabolic acidosis non gap associated with renal failure. Continue with the IV bicarb and add oral sodium bicarb as well. 3. Chronic kidney disease stage 4. Baseline creatinine not known. Renal replacement therapy has been discussed with the patient, although he is reluctant. He follows with Dr. Villagomez out of [facility]. 4. History of benign prostatic hypertrophy and obstructive uropathy with history of ureteral stents per patient. Details not known. He follows with Dr. Smith from Urology out of [facility]. 5. Borderline elevated troponin. 6. Anemia, rule out iron deficiency. PLAN: Decrease Lasix. Add oral sodium bicarb. Repeat labs in a.m. Pulmonary consultation for COPD exacerbation and check postvoid residual. Rule out urine retention. I will order an ultrasound of the kidneys as well. MMODL / IJN: [id number] /
[2021-02-05] MEDS ORDERED: DARBEPOETIN ALFA 40 MCG/0.4 ML SYRINGE SQ SCH (14:00)
--- NOTE | 2021-02-05 14:39 | CT ---
EXAMINATION TYPE: CT chest wo con DATE OF EXAM: 02/05/2021 COMPARISON: 02/05/2021 chest x-ray HISTORY: Right lung opacity CT DLP: 430.3 mGycm Automated exposure control for dose reduction was used. CONTRAST: CT scan of the chest is performed without intravenous contrast. FINDINGS: LUNGS: Moderate right and small left pleural effusions, with adjacent atelectasis. There are more nod ular areas of atelectasis at the bilateral lower lobes which may represent small areas of round atele ctasis. There is mild groundglass opacities of the right upper lobe and right lower lobe. Several sma ll scattered nodular opacities measuring 2 to 3 mm. Mild emphysematous change. No pneumothorax. The t racheobronchial tree is patent. MEDIASTINUM/SOFT TISSUES: No axillary lymphadenopathy. There is mediastinal lymphadenopathy. Cardiac size is normal. No pericardial effusion. Calcified coronary artery disease. Left-sided dual-chamber c ardiac pacemaker. No thoracic aortic aneurysm. Calcified atherosclerotic disease of the thoracic aort a. UPPER ABDOMEN: Coarse prostatic calcifications may represent sequela of chronic pancreatitis. The rig ht kidney demonstrates incompletely visualized possible ureteral stent and hydronephrosis versus larg e cyst. OSSEOUS: Kyphoplasty change at likely L1. IMPRESSION: 1. Moderate right and small left pleural effusions with adjacent atelectasis. 2. Mild groundglass opacities of the right upper and right lower lobe and several tiny nodular opaci ties. Findings may represent acute infectious or inflammatory process, although pulmonary nodules not excluded. 3. Incompletely visualized right kidney demonstrates possible ureteral stent and hydronephrosis vers us large cyst. Further imaging of the kidney is recommended.
[2021-02-05] MEDS: methylPREDNISolone SOD SUCCI 40 MG/ML 1 ML VIAL IV SCH ×2 (15:08→23:21)
--- NOTE | 2021-02-05 15:50 | US ---
EXAMINATION TYPE: US kidneys/renal and bladder DATE OF EXAM: 02/05/2021 COMPARISON: CT chest performed same day. CLINICAL HISTORY: RF. EXAM MEASUREMENTS: Right Kidney: 11.9 x 6.9 x 6.7 cm Left Kidney: 12.5 x 5.0 x 5.4 cm Right Kidney: There is marked hydronephrosis of the upper pole of the right kidney. There is pelviectasis the interpolar and lower polar kidney. There is cortical thinning. Left Kidney: No hydronephrosis of the left kidney. Increased echogenicity of the cortex Bladder: Urinary bladder normal, stent seen within. IMPRESSION: 1. Marked hydronephrosis of the upper pole of the right kidney with only pelviectasis and/or cysts of the interpolar and lower pole. Findings may represent duplicated collecting system, large upper pole cyst versus true hydronephrosis, or upper pole selective obstructive process. CT urogram could be ob tained for further characterization. 2. Left renal cortical echogenicity may be due to patient body habitus versus medical renal disease. 3. Normal urinary bladder with visualization of stent.
--- NOTE | 2021-02-05 15:52 | P.CNPUL ---
History of Present Illness Consult date: 02/05/21 Reason for consult: dyspnea History of present illness: I was asked to evaluate this patient for shortness of breath. The patient is a chronic smoker and he has history of COPD. He is 86 years of age. He also has multiple comorbidities. His undergone previous aortic valve replacement and the patient has a bioprosthetic aortic valve and this was done several years back for severe aortic stenosis. The patient also has a permanent pacemaker in place. Other comorbid conditions include diabetes mellitus type 2, hypertension and hyperlipidemia and diabetic peripheral neuropathy. He also has bladder cancer, treated with radiation therapy and the patient has also stage IV chronic kidney disease. He lives in [facility] and the patient was in [place] celebrating his regarding anniversary with his irina . He felt progressive dyspnea. No cough. No sputum production. No hemoptysis. No pleurisy. No swelling in lower extremities. No fever or chills. He has taken is COVID 19 vaccination including a booster shot. He is known to have history of bladder cancer and he has received radiation therapy to his bladder. No hematuria. The patient presented to the hospital because of his worsening shortness of breath. His creatinine was 4.1 with a mean of 62, essentially chronic. White cell count was at 7.3. His chronic anemia with a hemoglobin of 9.6. His troponin was 0.06, Procan SR level was 0.26, his d-dimer was at 4.9. COVID 19 testing was negative. Noted the patient's chest x-ray showed a questionable infiltration of the right lower lobe. Subsequent chest x-ray was negative and it showed improvement in aeration of the right lung base. Noted the patient was not treated with antibiotics. I saw him today in consultation. Due to his smoking history and a unexplained right lower lobe opacity, I ordered a CAT scan of the chest that showed no clear indication of any pneumonia. The patient had some atelectatic changes in the right lung base along with small bilateral pleural effusion. There was some background emphysema. As such, there is no indication for a lung mass or tumors or pneumonia at this point in time. The patient does have a component of COPD exacerbation however. Echocardiogram was also done and showed a preserved LV function and the patient has normal valvular function. Review of Systems CONSTITUTIONAL: No fever, no malaise, no fatigue. HEENT: No recent visual problems or hearing problems. Denied any sore throat. CARDIOVASCULAR: No chest pain, orthopnea, PND, no palpitations, no syncope. PULMONARY: As mentioned in HPI , the patient has been expressing worsening shortness of breath as mentioned above. GASTROINTESTINAL: No diarrhea, no nausea, no vomiting, no abdominal pain. NEUROLOGICAL: No headaches, no weakness, no numbness. HEMATOLOGICAL: Denies any bleeding or petechiae. GENITOURINARY: Denies any burning micturition, frequency, or urgency. MUSCULOSKELETAL/RHEUMATOLOGICAL: Denies any joint pain, swelling, or any muscle pain. ENDOCRINE: Denies any polyuria or polydipsia. The rest of the 14-point review of systems is negative. Past Medical History Past Medical History: Cancer, Diabetes Mellitus, Hyperlipidemia, Hypertension, Renal Disease Additional Past Medical History / Comment(s): Bladder cancer post TURB and radiation therapy, AVR 2014 for and he pacemaker insertion, AAA post endovascular stent grafting History of Any Multi-Drug Resistant Organisms: Unobtainable Past Surgical History: Pacemaker Additional Past Surgical History / Comment(s): Abdominal Aortic Aneurysm Type of Cardiac Device: Permanent Pacemaker Device Placement Date:: 12/2020 Past Psychological History: No Psychological Hx Reported Smoking Status: Current every day smoker Past Alcohol Use History: None Reported Past Drug Use History: None Reported Medications and Allergies Home Medications Medication Instructions Recorded Confirmed Type Allopurinol [Zyloprim] 100 mg PO DAILY 02/03/21 02/03/21 History Cholecalciferol [Vitamin D3 (25 25 mcg PO DAILY 02/03/21 02/03/21 History Mcg = 1000 Iu)] Insulin Detemir [Levemir Flextouch 20 units SQ HS 02/03/21 02/03/21 History Pen] Metoprolol Succinate (ER) [Toprol 25 mg PO DAILY 02/03/21 02/03/21 History Xl] Phenazopyridine [Pyridium] 200 mg PO BID 02/03/21 02/03/21 History Tolterodine ER [Detrol LA] 4 mg PO DAILY 02/03/21 02/03/21 History amLODIPine [Norvasc] 5 mg PO DAILY 02/03/21 02/03/21 History sitaGLIPtin PHOSPHATE [Januvia] 25 mg PO DAILY 02/03/21 02/03/21 History Allergies Allergy/AdvReac Type Severity Reaction Status Date / Time bee venom protein (honey bee) Allergy Severe Swelling Verified 02/03/21 22:53 Physical Exam Vitals: Vital Signs Temp Pulse Resp BP Pulse Ox 02/05/21 08:00 97.7 F 78 17 161/70 96 02/05/21 04:00 97.7 F 66 20 125/59 93 L 02/05/21 00:00 74 20 124/64 97 02/04/21 20:40 20 94 L 02/04/21 20:00 97.7 F 66 22 135/63 96 02/04/21 16:00 74 16 120/73 94 L Intake and Output 02/04/21 02/05/21 02/05/21 22:59 06:59 14:59 Intake Total 180 180 Output Total 200 Balance 180 -200 180 Intake: Oral 180 180 Output: Urine 200 Other: Voiding Method Urinal Urinal Urinal # Voids 2 3 Weight 74.8 kg GENERAL: The patient is alert and oriented x3, not in any acute distress. Well developed, well nourished. HEENT: Pupils are round and equally reacting to light. EOMI. No scleral icterus. No conjunctival pallor. Normocephalic, atraumatic. No pharyngeal erythema. No thyromegaly. CARDIOVASCULAR: S1 and S2 present. No murmurs, rubs, or gallops. The patient also has a pacemaker over the left anterior chest area. The patient has a thoracotomy scar. PULMONARY: The patient is bronchospastic and wheezy and the patient has prolongation of the exhalation phase of breathing and scattered expiratory wheezes heard throughout the lung his bilaterally. ABDOMEN: Soft, nontender, nondistended, normoactive bowel sounds. No palpable organomegaly. MUSCULOSKELETAL: No joint swelling or deformity. EXTREMITIES: No cyanosis, clubbing, or pedal edema. NEUROLOGICAL: Gross neurological examination did not reveal any focal deficits. Examination of the skin revealed no evidence of significant rashes, suspicious appearing nevi or other concerning lesions. Results - Laboratory Findings CBC and BMP: 02/04/21 10:59 02/05/21 07:31 PT/INR, D-dimer PT 9.6 sec (9.0-12.0) 02/03/21 20:16 INR 0.9 (<1.2) 02/03/21 20:16 D-Dimer 4.97 mg/L FEU (<0.60) H 02/03/21 20:16 Abnormal lab findings: Abnormal Labs 02/03/21 02/03/21 02/03/21 20:16 20:16 20:16 RBC 3.22 L Hgb 10.4 L Hct 32.2 L MCV Lymphocytes # 0.4 L APTT 32.8 H D-Dimer 4.97 H Chloride 113 H Carbon Dioxide 13 L BUN 64 H Creatinine 4.05 H Glucose 193 H POC Glucose (mg/dL) Troponin I Procalcitonin 02/03/21 02/03/21 02/03/21 20:16 22:21 22:21 RBC Hgb Hct MCV Lymphocytes # APTT D-Dimer Chloride Carbon Dioxide BUN Creatinine Glucose POC Glucose (mg/dL) Troponin I 0.047 H* 0.050 H* Procalcitonin 0.26 H 02/04/21 02/04/21 02/04/21 02:06 10:59 10:59 RBC 3.00 L Hgb 9.6 L Hct 30.5 L MCV 101.5 H Lymphocytes # 0.4 L APTT 164.9 H* D-Dimer Chloride Carbon Dioxide BUN Creatinine Glucose POC Glucose (mg/dL) Troponin I 0.069 H* Procalcitonin 02/04/21 02/04/21 02/05/21 10:59 10:59 07:31 RBC Hgb Hct MCV Lymphocytes # APTT D-Dimer Chloride 114 H 113 H Carbon Dioxide 14 L 13 L BUN 62 H 64 H Creatinine 4.19 H 4.18 H Glucose 182 H 175 H POC Glucose (mg/dL) Troponin I Procalcitonin 0.26 H 02/05/21 02/05/21 08:09 11:38 RBC Hgb Hct MCV Lymphocytes # APTT D-Dimer Chloride Carbon Dioxide BUN Creatinine Glucose POC Glucose (mg/dL) 171 H 158 H Troponin I Procalcitonin - Diagnostic Findings Chest x-ray: image reviewed Assessment and Plan Plan: 1 shortness of breath secondary to a acute COPD exacerbation. A limited right lower lobe pneumonia cannot be completely excluded. This clearly showed an init ial chest x-ray and subsequent chest x-ray showed clearing of the right lower lobe pulmonary infiltrate. CAT scan of the chest showed small bilateral pleural effusions. Some bibasilar atelectatic change. The patient is currently on oxygen at 4 L per minute nasal cannula. The VQ scan was nondiagnostic or low/intermediate probability pulmonary embolism. There was large most medication perfusion defect in the right upper lobe. There are also few scattered similar matched defects bilaterally. D-dimer was slightly elevated at a time of admission. history of any DVT or pulmonary embolism 2 small bilateral pleural effusions 3 COPD 4 history of aortic stenosis and the patient is alert and aortic valve replacement many years back. Echocardiac [place] showed normal functionality of the aortic valve 5 hypertension 6 hyperlipidemia 7 diabetes mellitus with diabetic nephropathy 8 chronic stage IV diabetic kidney disease, along with a component of non-anion gap metabolic acidosis. Currently on a bicarb infusion. 9 abdominal aortic aneurysm status post endovascular stent grafting 10 history of bladder cancer treated with radiation therapy to the bladder Plan The patient is oxygenation is improved without the use of any antibiotics. The pro calcitonin was mildly elevated and the patient has been treated with no antibiotics for now. I believe the patient has a component of COPD exacerbation. He'll be treated with accommodation bronchodilators and he will be also started on IV Solu-Medrol monitoring the blood sugars. The patient was already given diuretics. The patient is currently on Lasix 40 mg IV every 24 hours. This will be continued. Bicarb deficit will be replaced by bicarb infusion today to 50 mL an hour. No indication for any pneumonia or pulmonary embolism. Monitor oxygenation. Monitor symptoms. We'll continue to follow.
[2021-02-05 16:16] LABS: Glucose,Whole Blood 141 mg/dL (75-99)
[2021-02-05 17:05] LABS: % Iron Saturation 19.35 (15.00-50.00)
[2021-02-05] MEDS: IPRATROPIUM-ALBUTEROL 3 ML NEB INHALATION SCH ×2 (17:30→21:22)
--- NOTE | 2021-02-05 17:32 | PN ---
PROGRESS NOTE This is an 86-year-old gentleman with history of aortic valve replacement, sick sinus syndrome, status post permanent pacemaker, chronic renal insufficiency, hypertension and dyslipidemia who was admitted to hospital with shortness of breath and had mild troponin elevation. He has been treated with Lasix, with some improvement in his symptoms. This morning he is comfortable at rest. Vital signs are stable. Blood pressure is elevated at 148/72, respiratory rate is 18. Chest exam reveals diminished air entry at the bases. Heart exam reveals first and second heart sounds. Ejection systolic murmur in the aortic area. Abdomen is soft. Examination of extremities did not reveal any edema. Peripheral pulses are felt. Labs show a hemoglobin of 9.6. BUN is 64, creatinine is 4.1. CT scan of the chest showed bilateral pleural effusions. ASSESSMENT: 1. Elevated troponin secondary to renal insufficiency. 2. Chronic renal failure. 3. Status post aortic valve replacement. 4. Possible pneumonia. 5. Anemia. 6. Uncontrolled hypertension. PLAN: Patient is being treated with nebulizers. I will increase the dose of Norvasc to 10 for more optimal blood pressure control. No other cardiac intervention at this time. Patient is on IV Lasix, which we are going to continue, and the Lasix dose has been decreased as per Nephrology. Congestive heart failure symptoms have improved and it is probably diastolic heart failure. I reviewed echo findings. MMELIECOL / IJN: [id number] /
[2021-02-05 20:34] LABS: Glucose,Whole Blood 283 mg/dL (75-99)
[2021-02-05] MEDS ORDERED: INSULIN DETEMIR (LEVEMIR) 100 UNIT/ML SYR SQ SCH (21:00)
[2021-02-05] MEDS: BUDESONIDE 1 MG/2 ML NEBU INHALATION SCH (21:22)
[2021-02-05] MEDS: FORMOTEROL FUMARATE 20 MCG/2 ML NEBU INHALATION SCH (21:22)
[2021-02-06] MEDS: INSULIN ASPART (NovoLOG) 100 UNIT/ML VIAL SQ SCH ×2 (06:11→12:27)
[2021-02-06 06:25] LABS: Glucose,Whole Blood 309 mg/dL (75-99)
[2021-02-06] MEDS: IPRATROPIUM-ALBUTEROL 3 ML NEB INHALATION SCH ×2 (08:21→12:22)
[2021-02-06] MEDS: FORMOTEROL FUMARATE 20 MCG/2 ML NEBU INHALATION SCH (08:21)
[2021-02-06] MEDS: BUDESONIDE 1 MG/2 ML NEBU INHALATION SCH (08:21)
[2021-02-06] MEDS: METOPROLOL TARTRATE 50 MG TAB PO SCH (08:28)
[2021-02-06] MEDS: CHOLECALCIFEROL 25 MCG (1000 IU) TABLET PO SCH (08:28)
[2021-02-06] MEDS: amLODIPine 5 MG TAB PO SCH (08:28)
[2021-02-06] MEDS: ASPIRIN 325 MG TAB PO SCH (08:28)
[2021-02-06] MEDS: LINAGLIPTIN 5 MG TABLET PO SCH (08:28)
[2021-02-06] MEDS: SODIUM BICARBONATE TAB 650 MG TAB PO SCH (08:29)
[2021-02-06] MEDS: HEPARIN SODIUM,PORCINE/PF 5,000 UNIT/0.5 ML SYRINGE SQ SCH (08:29)
[2021-02-06] MEDS: OXYBUTYNIN 10 MG TAB.ER.24 PO SCH (08:29)
[2021-02-06] MEDS: allopurinoL 100 MG TAB PO SCH (08:29)
[2021-02-06] MEDS: methylPREDNISolone SOD SUCCI 40 MG/ML 1 ML VIAL IV SCH (08:29)
[2021-02-06] MEDS: NITROGLYCERIN OINT 1 INCH/GM PACKET TOPICAL SCH (08:30)
[2021-02-06] MEDS ORDERED: amLODIPine 5 MG TAB PO STA (08:42)
[2021-02-06] MEDS ORDERED: FUROSEMIDE 10 MG/ML 4 ML VIAL IV SCH (09:00)
[2021-02-06] MEDS ORDERED: ASPIRIN 81 MG PO SCH (09:00)
[2021-02-06 10:39] LABS: Calcium 8.6 mg/dL (8.4-10.2)
--- NOTE | 2021-02-06 11:09 | P.PN ---
Subjective Progress Note Date: 02/06/21 HISTORY OF PRESENT ILLNESS: This is an 86-year-old male who follows with a reclamation worker in [place]. Patient is admitted to the hospital secondary to shortness of breath and congestive heart failure. Patient examined this morning at the bedside. Patient remains on 4 L nasal cannula which nursing is attempting to wean down. His oxygen saturations are greater than 92%. He remains on IV Lasix 40 mg daily. Creatinine today 4.48, up from 4.18 yesterday. Nephrology is following. Echocardiogram completed revealing ejection fraction 50-55% with mild mitral regurgitation. Blood pressure is elevated this morning at 158/73. PHYSICAL EXAM: VITAL SIGNS: Reviewed. GENERAL: Well-developed in no acute distress. NECK: Supple. No JVD or thyromegaly LUNGS: Respirations even and unlabored. Lungs essentially clear to auscultation bilaterally. HEART: Regular rate and rhythm. S1 and S2 heard. EXTREMITIES: Normal range of motion. No clubbing or cyanosis. Peripheral pulses intact. No lower extremity edema ASSESSMENT: Shortness of breath Acute exacerbation of chronic diastolic congestive heart failure Acute hypoxic respiratory failure requiring supplemental oxygen Acute on chronic renal failure Metabolic acidosis Abnormal troponins, secondary to above, not indicative of acute coronary syndrome History of aortic valve replacement Hypertension Hyperlipidemia Diabetes PLAN: Continue current cardiac medications Continue diuretics per nephrology Monitor kidney function Daily weights Accurate I&O Wean oxygen as tolerated to maintain oxygen saturations greater than 92% Monitor blood pressure. Increase amlodipine to 10 mg daily. Give additional dose of 5 mg now Continue additional cardiac medications Further recommendations pending patient's course Nurse practitioner note has been reviewed by physician. Signing provider agrees with the documented findings, assessment, and plan of care. Objective - Vital Signs Vital signs: Vital Signs Temp 97.4 F L 02/06/21 08:00 Pulse 76 02/06/21 08:00 Resp 18 02/06/21 08:00 BP 158/73 02/06/21 08:00 Pulse Ox 95 02/06/21 08:00 Intake & Output 02/05/21 02/06/21 02/06/21 18:59 06:59 18:59 Intake Total 660 240 Output Total 800 300 400 Balance -140 -300 -160 Weight 74.3 kg Intake: Oral 660 240 Output: Urine 800 300 400 Other: Voiding Method Urinal Urinal Urinal - Labs CBC & Chem 7: 12/04/21 10:59 02/06/21 09:07 Labs: Abnormal Lab Results - Last 24 Hours (Table) 02/05/21 02/05/21 02/05/21 Range/Units 07:31 11:38 16:14 Sodium (137-145) mmol/L Carbon Dioxide (22-30) mmol/L BUN (9-20) mg/dL Creatinine (0.66-1.25) mg/dL Glucose (74-99) mg/dL POC Glucose (mg/dL) 158 H 141 H (75-99) mg/dL Iron 43 L (65-175) ug/dL TIBC 221 L (228-460) ug/dL Transferrin 158.0 L (204.0-354.0) mg/dL 02/05/21 02/06/21 02/06/21 Range/Units 20:05 05:54 09:07 Sodium 135 L (137-145) mmol/L Carbon Dioxide 18 L (22-30) mmol/L BUN 70 H (9-20) mg/dL Creatinine 4.48 H (0.66-1.25) mg/dL Glucose 354 H (74-99) mg/dL POC Glucose (mg/dL) 283 H 309 H (75-99) mg/dL Iron (65-175) ug/dL TIBC (228-460) ug/dL Transferrin (204.0-354.0) mg/dL Microbiology - Last 24 Hours (Table) 02/03/21 22:43 Blood Culture - Preliminary Blood No Growth after 48 hours 02/04/21 14:02 Blood Culture - Preliminary Blood No Growth after 24 hours 02/03/21 22:21 Blood Culture Gram Stain - Final Blood Blood Culture - Final Coagulase Negative Staph Coagulase Negative Staph#2
[2021-02-06 11:46] LABS: Glucose,Whole Blood 352 mg/dL (75-99)
--- NOTE | 2021-02-06 11:51 | P.PN ---
Subjective Patient is seen in follow-up for acute kidney injury on chronic kidney disease. Patient has chronic kidney disease stage IV. Creatinine 4.48 today. Nonoliguric. No vomiting or diarrhea. Wants to go home. Vital signs are stable. General: The patient appeared well nourished and normally developed. HEENT: Head exam is unremarkable. LUNGS: Breath sounds decreased. HEART: Rate and Rhythm are regular. ABDOMEN: Soft, no distention. EXTREMITITES: No edema. Objective - Vital Signs Vital signs: Vital Signs Temp 97.4 F L 02/06/21 08:00 Pulse 76 02/06/21 08:00 Resp 18 02/06/21 08:00 BP 158/73 02/06/21 08:00 Pulse Ox 95 02/06/21 08:00 Intake & Output 02/05/21 02/06/21 02/06/21 18:59 06:59 18:59 Intake Total 660 240 Output Total 800 300 400 Balance -140 -300 -160 Weight 74.3 kg Intake: Oral 660 240 Output: Urine 800 300 400 Other: Voiding Method Urinal Urinal Urinal - Labs CBC & Chem 7: 02/04/21 10:59 02/06/21 09:07 Labs: Abnormal Lab Results - Last 24 Hours (Table) 02/05/21 02/05/21 02/05/21 Range/Units 07:31 16:14 20:05 Sodium (137-145) mmol/L Carbon Dioxide (22-30) mmol/L BUN (9-20) mg/dL Creatinine (0.66-1.25) mg/dL Glucose (74-99) mg/dL POC Glucose (mg/dL) 141 H 283 H (75-99) mg/dL Iron 43 L (65-175) ug/dL TIBC 221 L (228-460) ug/dL Transferrin 158.0 L (204.0-354.0) mg/dL 02/06/21 02/06/21 02/06/21 Range/Units 05:54 09:07 11:44 Sodium 135 L (137-145) mmol/L Carbon Dioxide 18 L (22-30) mmol/L BUN 70 H (9-20) mg/dL Creatinine 4.48 H (0.66-1.25) mg/dL Glucose 354 H (74-99) mg/dL POC Glucose (mg/dL) 309 H 352 H (75-99) mg/dL Iron (65-175) ug/dL TIBC (228-460) ug/dL Transferrin (204.0-354.0) mg/dL Microbiology - Last 24 Hours (Table) 02/03/21 22:43 Blood Culture - Preliminary Blood No Growth after 48 hours 02/04/21 14:02 Blood Culture - Preliminary Blood No Growth after 24 hours 02/03/21 22:21 Blood Culture Gram Stain - Final Blood Blood Culture - Final Coagulase Negative Staph Coagulase Negative Staph#2 Assessment and Plan Plan: Assessment: 1. Chronic kidney disease stage IV secondary to obstructive uropathy and diabetic kidney disease. Patient's creatinine in September 2019 was 3.67. 2. Acute kidney injury secondary to ATN secondary to cardiorenal syndrome versus progression of underlying chronic kidney disease. Creatinine 4.48 today. 3. Hydronephrosis with history of right-sided ureteral stent. Patient states he had another ureteral stent placed about a week ago? 4. Acute on chronic diastolic CHF. 5. History of bladder cancer. 6. Diabetes. 7. Anemia of chronic kidney disease maintained on Aranesp. 8. Metabolic acidosis secondary to acute kidney injury maintain on bicarb drip. Also on oral bicarbonate. 9. Volume overload. 10. Hypertension with chronic kidney disease. Stable. Plan: Hep-Lock IV fluids. Maintain oral bicarb. Maintain IV Lasix. Consult urology for the hydronephrosis. Continue to monitor renal function and urine output. Patient very hesitant to do renal replacement therapy. Continue to assess daily.
--- NOTE | 2021-02-06 12:49 | P.DS ---
Providers Date of admission: 02/03/21 21:54 Attending physician: Tabatha Pack Consults: 02/03/21 21:49 Consult Physician Routine Consulting Provider: Easton López Consult Reason/Comments: chf, dyspnea Do you want consulting provider notified?: Yes 02/03/21 21:54 Consult Physician Urgent Consulting Provider: Liat Vasquez Consult Reason/Comments: renal failure Do you want consulting provider notified?: Yes 02/05/21 08:36 Consult Physician Routine Consulting Provider: Irene Diaz Consult Reason/Comments: possible lower lobe pnemonia per Don De La Vega [employer] Do you want consulting provider notified?: Already Contacted 02/06/21 10:52 Consult Physician Routine Consulting Provider: Cullen Almazan Consult Reason/Comments: hydronephrosis, recent stent placement Do you want consulting provider notified?: Yes Primary care physician: Physician Nonstaff Hospital Course: Patient is a pleasant 81-year-old male with history of chronic kidney disease stage IV came in with compensative shortness of breath which has been going on for couple days without any fever chills patient denied any cough. Patient had a chest x-ray which showed possibility of CHF there is infiltrate in the lower lung liz[place]aga because of which there is a concern about pneumonia because of which I'm obtaining a pro-calcitonin level although weakly patient doesn't appear to have pneumonia. has a minimally elevated troponin and patient bioprosthetic aortic valve replacement in the past. Patient is not aware of history of congestive heart failure patient bicarbonate is extremely low because of which patient is receiving IV bicarbonate supplementation along with IV Lasix patient doesn't have any significant JVD or pedal edema but does have highly elevated BNP of around 22,000. Patient is presently on high flow oxygen patient does have a pacemaker. 02/05/2021 Patient is a clinically doing much better this time patient's pro calcitonin is not consistent with pneumonia patient respiratory status is much better today patient is feeling better wanted to go home. Patient remains on 4 L of oxygen pulmonology valid the patient patient to is believed to have emphysema CT of the chest is being obtained. Patient remains on IV Lasix. echo showed normal ejection fraction. 02/06/2021 Patient is clinically doing well off oxygen is not requiring any oxygen at this time. Patient was a valid by nephrology patient creatinine remained fairly stable at 4.48 although mildly worsened compared to his admission. Patient had hydronephrosis on the ultrasound that was done. Patient had extensive history of stents and renal cancer in the past. Initially nephrology consulted urology but patient wanted to go home and this appears to be a chronic thing from the history discussed with nephrology who is agreeable for patient's follow-up with urology as an outpatient. Patient will be discharged on Demadex 20 mg not require any potassium supplementation patient has baseline COPD although the lungs are clear at do not believe patient will require any systemic steroids patient blood sugars are extremely high at this time because of the systemic steroids. These are expected to stay high for next 2-3 days patient will be resumed on his home regimen and titration as an outpatient. As I'm not discharging him on any steroids patient will not be started on any sliding scale for elevated blood sugars at this time. Patient need to follow up closely with PCP, nephrology, urology, cardiology as an outpatient. Basic metabolic profile will be repeated in 2 days. Patient doesn't have any evidence of pneumonia for calcitonin levels are not consistent with the Bacterial pneumonia PHYSICAL EXAMINATION: GENERAL: The patient is alert and oriented x3, not in any acute distress. Well developed, well nourished. HEENT: Pupils are round and equally reacting to light. EOMI. No scleral icterus. No conjunctival pallor. Normocephalic, atraumatic. No pharyngeal erythema. No thyromegaly. CARDIOVASCULAR: S1 and S2 present. No murmurs, rubs, or gallops. PULMONARY: Chest is clear to auscultation, no wheezing or crackles. ABDOMEN: Soft, nontender, nondistended, normoactive bowel sounds. No palpable organomegaly. MUSCULOSKELETAL: No joint swelling or deformity. EXTREMITIES: No cyanosis, clubbing, or pedal edema. NEUROLOGICAL: Gross neurological examination did not reveal any focal deficits. SKIN: No rashes. Assessment and plan -Acute hypoxic respiratory failure this is pretty status significant improved and patient is patient does have a emphysema. Acute renal failure dueto CHF -metabolic acidosis secondary to renal failure chronic kidney disease -Congestive heart failure: Probably chronic diastolic dysfunction with acute exacerbation patient had normal ejection fraction -Type 2 diabetes mellitus -Hyperlipidemia -Hypertension -Diabetic nephropathy -Nicotine use: Counseling was provided Plan - Discharge Summary Discharge Rx Participant: No New Discharge Prescriptions: New amLODIPine [Norvasc] 10 mg PO DAILY #30 tab Sodium Bicarbonate Tab 650 mg PO QID #90 tab Budesonide-Formot 160-4.5 Mcg [Symbicort 160-4.5 Mcg Inhaler] 2 puff INHALATION BID #10.2 gm Torsemide [Demadex] 20 mg PO DAILY #30 tablet Aspirin 81 mg PO DAILY #30 tab Metoprolol Tartrate [Lopressor] 50 mg PO BID #60 tab Albuterol Inhaler [Ventolin Hfa Inhaler] 2 puff INHALATION RT-QID PRN #18 gm PRN Reason: Shortness Of Breath Or Wheezing Continue Tolterodine ER [Detrol LA] 4 mg PO DAILY Cholecalciferol [Vitamin D3 (25 Mcg = 1000 Iu)] 25 mcg PO DAILY Insulin Detemir [Levemir Flextouch Pen] 20 units SQ HS sitaGLIPtin PHOSPHATE [Januvia] 25 mg PO DAILY Phenazopyridine [Pyridium] 200 mg PO BID Allopurinol [Zyloprim] 100 mg PO DAILY Discontinued amLODIPine [Norvasc] 5 mg PO DAILY Metoprolol Succinate (ER) [Toprol Xl] 25 mg PO DAILY Discharge Medication List Allopurinol [Zyloprim] 100 mg PO DAILY 02/03/21 [History] Cholecalciferol [Vitamin D3 (25 Mcg = 1000 Iu)] 25 mcg PO DAILY 02/03/21 [History] Insulin Detemir [Levemir Flextouch Pen] 20 units SQ HS 02/03/21 [History] Phenazopyridine [Pyridium] 200 mg PO BID 02/03/21 [History] Tolterodine ER [Detrol LA] 4 mg PO DAILY 02/03/21 [History] sitaGLIPtin PHOSPHATE [Januvia] 25 mg PO DAILY 02/03/21 [History] Albuterol Inhaler [Ventolin Hfa Inhaler] 2 puff INHALATION RT-QID PRN #18 gm 02/06/21 [Rx] Aspirin 81 mg PO DAILY #30 tab 02/06/21 [Rx] Budesonide-Formot 160-4.5 Mcg [Symbicort 160-4.5 Mcg Inhaler] 2 puff INHALATION BID #10.2 gm 02/06/21 [Rx] Metoprolol Tartrate [Lopressor] 50 mg PO BID #60 tab 02/06/21 [Rx] Sodium Bicarbonate Tab 650 mg PO QID #90 tab 02/06/21 [Rx] Torsemide [Demadex] 20 mg PO DAILY #30 tablet 02/06/21 [Rx] amLODIPine [Norvasc] 10 mg PO DAILY #30 tab 02/06/21 [Rx] Follow up Appointment(s)/Referral(s): Nonstaff,Physician [Primary Care Provider] - 3 Days Darell Pimentel DO [STAFF PHYSICIAN] - 1 Week Ambulatory/Diagnostic Orders: Basic Metabolic Panel [LAB.AMB] Time Frame: 3 Days, Location: None Selected Discharge Disposition: HOME SELF-CARE
[2021-02-06 13:11] VITALS: BP 151/66; PULSE 84; RESP 20; TEMP 98.1
[2021-02-07] MEDS ORDERED: amLODIPine 10 MG TAB PO SCH (09:00)
== END 2021-02-06 13:56 | disposition home or self-care (01) | DRG 291 ==
LOC: EC 19:13 → 3SCARD 21:54
PROVIDERS: ADMIT Hospitalist; ATTEND Hospitalist
PROC: 5A0935A Assistance with Respiratory Ventilation, Less than 24 Consecutive Hours, High Flow/Velocity Cannula (ICD-10-PCS; principal; 2021-02-03)
DX: I13.0 Hypertensive heart and chronic kidney disease with heart failure and stage 1 through stage 4 chronic kidney disease, or unspecified chronic kidney disease (principal); I50.33 Acute on chronic diastolic (congestive) heart failure; J96.01 Acute respiratory failure with hypoxia; N17.0 Acute kidney failure with tubular necrosis; N18.4 Chronic kidney disease, stage 4 (severe); E87.2 Acidosis; N13.30 Unspecified hydronephrosis; J43.9 Emphysema, unspecified; E11.42 Type 2 diabetes mellitus with diabetic polyneuropathy; D63.1 Anemia in chronic kidney disease; E11.22 Type 2 diabetes mellitus with diabetic chronic kidney disease; E78.5 Hyperlipidemia, unspecified; Z71.6 Tobacco abuse counseling; F17.210 Nicotine dependence, cigarettes, uncomplicated; Z85.51 Personal history of malignant neoplasm of bladder; Z71.3 Dietary counseling and surveillance; Z92.3 Personal history of irradiation; I35.0 Nonrheumatic aortic (valve) stenosis; Z95.3 Presence of xenogenic heart valve; N40.1 Benign prostatic hyperplasia with lower urinary tract symptoms; R77.8 Other specified abnormalities of plasma proteins; Z66 Do not resuscitate; Z20.822 Contact with and (suspected) exposure to COVID-19; Z79.4 Long term (current) use of insulin; Z79.84 Long term (current) use of oral hypoglycemic drugs; Z79.899 Other long term (current) drug therapy; Z85.528 Personal history of other malignant neoplasm of kidney; Z95.0 Presence of cardiac pacemaker; Z98.890 Other specified postprocedural states; Z96.0 Presence of urogenital implants; Z91.030 Bee allergy status; Z86.79 Personal history of other diseases of the circulatory system
CPT/HCPCS: 36415; 71046; 71250; 76770; 78582; 80048; 80053; 83540; 83550; 83605; 83735; 83880; 84145; 84484; 85025; 85379; 85610; 85730; 87040; 87635; 93005; 93306; 94640; 99285

== ENCOUNTER 2021-08-19 06:31 | Inpatient (IN) | payer MEDICARE, BC ==
[2021-08-19] MEDS ORDERED: IPRATROPIUM-ALBUTEROL 3 ML NEB INHALATION STA (06:58)
--- NOTE | 2021-08-19 07:09 | ED ---
SOB HPI <Artie Choe - Last Filed: 08/19/21 08:45> - General Source: patient, family, RN notes reviewed, old records reviewed Mode of arrival: wheelchair Limitations: no limitations - History of Present Illness MD Complaint: shortness of breath, cough -: days(s) (3) Severity scale (1-10): 0 Known History Of: congestive heart failure Context: recent illness (diagnosed with pneumonia ) Associated Symptoms: cough, sputum production (clear) Treatments Prior to Arrival: other (Augmentin and prednisone) <Waldemar Alaniz - Last Filed: 08/19/21 08:51> - General Chief Complaint: Shortness of Breath Stated Complaint: SOB Time Seen by Provider: 08/19/21 06:50 - History of Present Illness Initial Comments: Well-appearing 86-year-old male that presents to the emergency room with his gave patient has been complaining of cough since he was seen at an urgent care and diagnosed with pneumonia and placed on Augmentin and prednisone. Patient states that at 3:00 this morning he developed shortness of breath prompting him to come to the emergency room. Patient is a 2-1/2 a pack a day smoker per his . He denies any chest or abdominal pain. No fevers, no nausea vomiting or diarrhea. He does have a history of bladder cancer, CKD, diabetes, hypertension, congestive heart failure. (Waldemar Alaniz) - Related Data Home Medications Medication Instructions Recorded Confirmed Cholecalciferol [Vitamin D3 (25 25 mcg PO DAILY 02/03/21 02/03/21 Mcg = 1000 Iu)] Insulin Detemir [Levemir Flextouch 20 units SQ HS 02/03/21 02/03/21 Pen] Phenazopyridine [Pyridium] 200 mg PO BID 02/03/21 02/03/21 Tolterodine ER [Detrol LA] 4 mg PO DAILY 02/03/21 02/03/21 allopurinoL [Zyloprim] 100 mg PO DAILY 02/03/21 02/03/21 sitaGLIPtin PHOSPHATE [Januvia] 25 mg PO DAILY 02/03/21 02/03/21 Previous Rx's Medication Instructions Recorded Albuterol Inhaler [Ventolin Hfa 2 puff INHALATION RT-QID PRN #18 gm 02/06/21 Inhaler] Aspirin 81 mg PO DAILY #30 tab 02/06/21 Budesonide-Formot 160-4.5 Mcg 2 puff INHALATION BID #10.2 gm 02/06/21 [Symbicort 160-4.5 Mcg Inhaler] Metoprolol Tartrate [Lopressor] 50 mg PO BID #60 tab 02/06/21 Sodium Bicarbonate Tab 650 mg PO QID #90 tab 02/06/21 Torsemide [Demadex] 20 mg PO DAILY #30 tablet 02/06/21 amLODIPine [Norvasc] 10 mg PO DAILY #30 tab 02/06/21 Allergies Allergy/AdvReac Type Severity Reaction Status Date / Time bee venom protein (honey bee) Allergy Severe Swelling Verified 08/19/21 06:39 Review of Systems ROS Other: All systems not noted in ROS Statement are negative. <Artie Choe - Last Filed: 08/19/21 08:45> ROS Other: All systems not noted in ROS Statement are negative. <Waldemar Alaniz - Last Filed: 08/19/21 08:51> ROS Statement: Those systems with pertinent positive or pertinent negative responses have been documented in the HPI. Past Medical History Past Medical History: Cancer, Diabetes Mellitus, Hyperlipidemia, Hypertension, Renal Disease Additional Past Medical History / Comment(s): Bladder cancer post TURB and radiation therapy, AVR 2015 for and he pacemaker insertion, AAA post endovascular stent grafting History of Any Multi-Drug Resistant Organisms: Unobtainable Past Surgical History: Pacemaker Additional Past Surgical History / Comment(s): Abdominal Aortic Aneurysm Type of Cardiac Device: Permanent Pacemaker Device Placement Date:: 12/2020 Past Psychological History: No Psychological Hx Reported Smoking Status: Current every day smoker Past Alcohol Use History: None Reported Past Drug Use History: None Reported <Waldemar Alaniz - Last Filed: 08/19/21 08:51> General Exam Limitations: no limitations General appearance: alert, in no apparent distress ENT exam: Present: mucous membranes dry Neck exam: Present: full ROM. Absent: meningismus Respiratory exam: Present: wheezes, rales Cardiovascular Exam: Present: regular rate, normal rhythm GI/Abdominal exam: Present: soft. Absent: distended Extremities exam: Present: normal inspection, full ROM, normal capillary refill, pedal edema (1+ bilateral). Absent: tenderness, calf tenderness Back exam: Present: normal inspection. Absent: tenderness, CVA tenderness (R), CVA tenderness (L) Neurological exam: Present: alert, oriented X3 Psychiatric exam: Present: normal affect, normal mood Skin exam: Present: warm, dry, normal color. Absent: cyanosis, diaphoretic, pallor <Waldemar Alaniz - Last Filed: 08/19/21 08:51> Course - Reevaluation(s) Time: 08:01 <Waldemar Alaniz - Last Filed: 08/19/21 08:51> Vital Signs 08/19/21 08/19/21 08/19/21 06:36 07:04 07:13 Temperature 97.8 F Pulse Rate 85 78 79 Respiratory 18 18 18 Rate Blood Pressure 133/77 O2 Sat by Pulse 94 L Oximetry 08/19/21 08/19/21 08/19/21 07:41 08:00 08:21 Temperature Pulse Rate 78 75 Respiratory 22 20 Rate Blood Pressure 128/79 133/70 O2 Sat by Pulse 93 L 89 L 96 Oximetry - Reevaluation(s) Reevaluation #1: 08/19/21 08:01 Troponin is elevated patient continues to deny chest pain. Pulse ox dropped to 88% on room air. Patient was placed on 2 L nasal cannula (Waldemar Alaniz) Medical Decision Making - Lab Data Result diagrams: 08/19/21 07:02 08/19/21 07:02 <Artie Choe - Last Filed: 08/19/21 08:45> - Lab Data Result diagrams: 08/19/21 07:02 08/19/21 07:02 - EKG Data Rate: normal When compared to previous EKG there are: previous EKG unavailable <Waldemar Alaniz - Last Filed: 08/19/21 08:51> - Medical Decision Making Patient reexamined and reevaluated by myself, Dr. Choe. Patient resting comfortably in bed. I do agree with PAs findings. This includes diagnostic interpretation and treatment plan. Patient will be admitted for CHF. Patient does have mild bump in troponin and this will need to be rechecked and cardiology will need to evaluate. (Artie Choe) Patient presents with shortness of breath since 3:00 this morning. Patient was placed on Augmentin and prednisone by urgent care after diagnosed with pneumonia on . X-ray shows interstitial edema with pre-existing COPD. No evidence of pleural effusion. Possible pulmonary venous hypertension consistent with congestive heart failure. There is no evidence of leukocytosis and patient is afebrile. Patient did have coronavirus 3 weeks ago, confirmed with home test, with fever, nausea and diarrhea and his symptoms had resolved. He did test positive again today, likely still detectable from that infection. Patient has been vaccinated with boosters. Troponin is elevated at 0.446 patient was started on heparin drip and given aspirin. BUN and creatinine are elevated comparable to previous labs with a history of chronic kidney disease. BNP [address] patient was given 40mg of Lasix. Case discussed with cardiology Dr. Robles. He will be admitted for hypoxia, CHF exacerbation, chronic kidney disease and elevated troponin. Patient's configuration management advisor is Dr. Paola Hairston Vergas. (Waldemar Alaniz) - Lab Data Lab Results 08/19/21 08/19/21 08/19/21 Range/Units 07:02 07:02 07:02 WBC 10.0 (3.8-10.6) k/uL RBC 3.15 L (4.30-5.90) m/uL Hgb 9.9 L (13.0-17.5) gm/dL Hct 31.6 L (39.0-53.0) % MCV 100.2 H (80.0-100.0) fL MCH 31.6 (25.0-35.0) pg MCHC 31.5 (31.0-37.0) g/dL RDW 15.3 (11.5-15.5) % Plt Count 185 (150-450) k/uL MPV 8.9 Neutrophils % 94 % Lymphocytes % 2 % Monocytes % 3 % Eosinophils % 0 % Basophils % 0 % Neutrophils # 9.4 H (1.3-7.7) k/uL Lymphocytes # 0.2 L (1.0-4.8) k/uL Monocytes # 0.3 (0-1.0) k/uL Eosinophils # 0.0 (0-0.7) k/uL Basophils # 0.0 (0-0.2) k/uL Hypochromasia Moderate Macrocytosis Slight PT 10.8 (9.0-12.0) sec INR 1.0 (<1.2) APTT 32.0 H (22.0-30.0) sec Sodium 138 (137-145) mmol/L Potassium 4.7 (3.5-5.1) mmol/L Chloride 109 H (98-107) mmol/L Carbon Dioxide 15 L (22-30) mmol/L Anion Gap 14 mmol/L BUN 66 H (9-20) mg/dL Creatinine 4.37 H (0.66-1.25) mg/dL Est GFR (CKD-EPI)AfAm 13 (>60 ml/min/1.73 sqM) Est GFR (CKD-EPI)NonAf 12 (>60 ml/min/1.73 sqM) Glucose 279 H (74-99) mg/dL Plasma Lactic Acid Michael (0.7-2.0) mmol/L Calcium 9.0 (8.4-10.2) mg/dL Magnesium 2.1 (1.6-2.3) mg/dL Total Bilirubin 0.6 (0.2-1.3) mg/dL AST 14 L (17-59) U/L ALT 12 (4-49) U/L Alkaline Phosphatase 99 (38-126) U/L Troponin I (0.000-0.034) ng/mL NT-Pro-B Natriuret Pep pg/mL Total Protein 7.4 (6.3-8.2) g/dL Albumin 4.1 (3.5-5.0) g/dL Coronavirus (PCR) (Not Detectd) Influenza Type A RNA (Not Detectd) Influenza Type B (PCR) (Not Detectd) 08/19/21 08/19/21 08/19/21 Range/Units 07:02 07:02 07:02 WBC (3.8-10.6) k/uL RBC (4.30-5.90) m/uL Hgb (13.0-17.5) gm/dL Hct (39.0-53.0) % MCV (80.0-100.0) fL MCH (25.0-35.0) pg MCHC (31.0-37.0) g/dL RDW (11.5-15.5) % Plt Count (150-450) k/uL MPV Neutrophils % % Lymphocytes % % Monocytes % % Eosinophils % % Basophils % % Neutrophils # (1.3-7.7) k/uL Lymphocytes # (1.0-4.8) k/uL Monocytes # (0-1.0) k/uL Eosinophils # (0-0.7) k/uL Basophils # (0-0.2) k/uL Hypochromasia Macrocytosis PT (9.0-12.0) sec INR (<1.2) APTT (22.0-30.0) sec Sodium (137-145) mmol/L Potassium (3.5-5.1) mmol/L Chloride (98-107) mmol/L Carbon Dioxide (22-30) mmol/L Anion Gap mmol/L BUN (9-20) mg/dL Creatinine (0.66-1.25) mg/dL Est GFR (CKD-EPI)AfAm (>60 ml/min/1.73 sqM) Est GFR (CKD-EPI)NonAf (>60 ml/min/1.73 sqM) Glucose (74-99) mg/dL Plasma Lactic Acid Michael 3.4 H* (0.7-2.0) mmol/L Calcium (8.4-10.2) mg/dL Magnesium (1.6-2.3) mg/dL Total Bilirubin (0.2-1.3) mg/dL AST (17-59) U/L ALT (4-49) U/L Alkaline Phosphatase (38-126) U/L Troponin I 0.446 H* (0.000-0.034) ng/mL NT-Pro-B Natriuret Pep 89567 pg/mL Total Protein (6.3-8.2) g/dL Albumin (3.5-5.0) g/dL Coronavirus (PCR) (Not Detectd) Influenza Type A RNA (Not Detectd) Influenza Type B (PCR) (Not Detectd) 08/19/21 08/19/21 Range/Units 07:24 07:24 WBC (3.8-10.6) k/uL RBC (4.30-5.90) m/uL Hgb (13.0-17.5) gm/dL Hct (39.0-53.0) % MCV (80.0-100.0) fL MCH (25.0-35.0) pg MCHC (31.0-37.0) g/dL RDW (11.5-15.5) % Plt Count (150-450) k/uL MPV Neutrophils % % Lymphocytes % % Monocytes % % Eosinophils % % Basophils % % Neutrophils # (1.3-7.7) k/uL Lymphocytes # (1.0-4.8) k/uL Monocytes # (0-1.0) k/uL Eosinophils # (0-0.7) k/uL Basophils # (0-0.2) k/uL Hypochromasia Macrocytosis PT (9.0-12.0) sec INR (<1.2) APTT (22.0-30.0) sec Sodium (137-145) mmol/L Potassium (3.5-5.1) mmol/L Chloride (98-107) mmol/L Carbon Dioxide (22-30) mmol/L Anion Gap mmol/L BUN (9-20) mg/dL Creatinine (0.66-1.25) mg/dL Est GFR (CKD-EPI)AfAm (>60 ml/min/1.73 sqM) Est GFR (CKD-EPI)NonAf (>60 ml/min/1.73 sqM) Glucose (74-99) mg/dL Plasma Lactic Acid Michael (0.7-2.0) mmol/L Calcium (8.4-10.2) mg/dL Magnesium (1.6-2.3) mg/dL Total Bilirubin (0.2-1.3) mg/dL AST (17-59) U/L ALT (4-49) U/L Alkaline Phosphatase (38-126) U/L Troponin I (0.000-0.034) ng/mL NT-Pro-B Natriuret Pep pg/mL Total Protein (6.3-8.2) g/dL Albumin (3.5-5.0) g/dL Coronavirus (PCR) Detected A (Not Detectd) Influenza Type A RNA Not Detected (Not Detectd) Influenza Type B (PCR) Not Detected (Not Detectd) - EKG Data EKG Comments: Ventricular pacemaker; ventricular rate 80, DE interval 0.257, QRS 0.211, QTC 0.555. (Waldemar Alaniz) Critical Care Time Critical Care Time: Yes Total Critical Care Time: 34 (Hypoxia needing supplemental oxygen, heparin gtt, card consult ) <Waldemar Alaniz - Last Filed: 08/19/21 08:51> Disposition <Artie Choe - Last Filed: 08/19/21 08:45> Decision Date: 08/19/21 Decision Time: 08:15 <Waldemar Alaniz - Last Filed: 08/19/21 08:51> Clinical Impression: Hypoxia, Elevated troponin, Chronic kidney disease, COPD (chronic obstructive pulmonary disease), Congestive heart failure (CHF) Disposition: ADMITTED IP TO THIS HOSP Referrals: Nonstaff,Physician [REFERRING] - 1-2 days
[2021-08-19 07:13] LABS: Basophils % (A) 0 %; Eosinophils % (A) 0 %; HCT 31.6 % (39.0-53.0); HGB 9.9 gm/dL (13.0-17.5); Hypochromasia Moderate; Lymphocytes # (A) 0.2 k/uL (1.0-4.8); Lymphocytes % (A) 2 %; MCH 31.6 pg (25.0-35.0); MCHC 31.5 g/dL (31.0-37.0); MCV 100.2 fL (80.0-100.0); Macrocytosis Slight; Mean Platelet Volume 8.9; Monocytes # (A) 0.3 k/uL (0-1.0); Monocytes % (A) 3 %; Neutrophils # (A) 9.4 k/uL (1.3-7.7); Neutrophils % (A) 94 %; Platelet Count 185 k/uL (150-450); RBC 3.15 m/uL (4.30-5.90); RDW 15.3 % (11.5-15.5)
[2021-08-19 07:23] LABS: Albumin 4.1 g/dL (3.5-5.0); Magnesium 2.1 mg/dL (1.6-2.3); Potassium 4.7 mmol/L (3.5-5.1); Total Bilirubin 0.6 mg/dL (0.2-1.3); Total Protein 7.4 g/dL (6.3-8.2)
[2021-08-19 07:31] LABS: Prothrombin Time 10.8 sec (9.0-12.0)
--- NOTE | 2021-08-19 07:38 | XR ---
EXAMINATION TYPE: XR chest 2V DATE OF EXAM: 08/19/2021 COMPARISON: Chest x-ray and CT 02/05/2021 HISTORY: Difficulty breathing TECHNIQUE: Frontal and lateral views of the chest are obtained. FINDINGS: Patient is post median sternotomy. There is a generator in the left pectoral region, leads are present in the right atrium and ventricle. Cardiac mediastinal silhouette is stable. No evident pneumothorax or pleural effusion. Interstitium is increased. Prominent lung volume may be indicative of underlying COPD. There are coronary artery calcifications. Question some blunting the posterior co stophrenic angles. Some thickening of the fissures noted on the lateral exam. IMPRESSION: Correlate for possible pulmonary venous hypertension and interstitial edema in a patient with pre-existing COPD, congestive heart failure with small effusions similar to prior.
[2021-08-19] MEDS ORDERED: ASPIRIN 81 MG PO STA (07:46)
[2021-08-19] MEDS ORDERED: HEPARIN SODIUM 1,000 UN/ML (10ML VL) IV PRN (08:01)
[2021-08-19] MEDS ORDERED: HEPARIN SODIUM 1,000 UN/ML (10ML VL) IV ONE (08:01)
[2021-08-19] MEDS: HEPARIN SOD,PORK IN 0.45% NACL 25,000 UNIT in 0.45% NACL 1 250ML.BAG IV SCH (08:17)
[2021-08-19] MEDS ORDERED: NICOTINE 21MG/24HR PATCH TRANSDERM STA (08:20)
[2021-08-19] MEDS ORDERED: FUROSEMIDE 10 MG/ML 4 ML VIAL IV STA (08:30)
[2021-08-19] MEDS ORDERED: ACETAMINOPHEN TAB 325 MG TAB PO PRN (08:45)
[2021-08-19] MEDS ORDERED: NALOXONE 0.4 MG/ML 1 ML VIAL IV PRN (08:45)
[2021-08-19 09:21] LABS: C Reactive Protein 1.3 mg/dL (<1.0)
[2021-08-19] MEDS ORDERED: IPRATROPIUM-ALBUTEROL 3 ML NEB INHALATION PRN (10:40)
--- NOTE | 2021-08-19 10:40 | P.CRDCN ---
History of Present Illness History of present illness: This is an 86-year-old gentleman with history of aortic valve repl COPD hypertension diabetes and dyslipidemia presents to Hospital complaining of shortness of breath. Patient started having cough since and apparently he had been diagnosed with pneumonia and started on Augmentin and prednisone developed shortness of breath early this morning and was brought to the hospital. He does not have PND or orthopnea. Does not have any leg edema. He has complex and multiple medical problems including chronic renal failure. Patient's d-dimer is elevated at 7.4 he is anemic with a hemoglobin of 9.9 BUN/creatinine are elevated at 66 and 4.3. BNP is elevated troponin is elevated at 0.4. His coronavirus test is positive. Influenza is negative. Patient tells me that he had Covid about a month ago. The chest x-ray reveals interstitial edema. Patient's clinical presentation is consistent with acute exacerbation of chronic diastolic heart failure. Given the renal failure I'm going to consult nephrology to advise on diuretics. There is no history of coronary artery disease the troponin elevation is related to renal failure. I will obtain a 2-D echo to assess his LV function and the aortic valve. Review of systems: 14 out of 14 review of systems has been performed pertinent set is documented in history of presenting illness General: The patient is awake and alert, in no distress, and does not appear acutely ill. Skin: Skin is warm and dry and no rashes or lesions are noted. Eye: Pupils are equal, round and reactive to light, extra-ocular movements are intact; there is normal conjunctiva bilaterally. Ears, nose, mouth and throat: There are moist mucous membranes and no oral lesions. Neck: The neck is supple, there is no tenderness or JVD. Cardiovascular: There is a regular rate and rhythm. No , rub or gallop is appreciated. Ejection systolic murmur in the aortic area Respiratory: Occasional rhonchi bilaterally. Gastrointestinal: Soft, non-distended, non-tender abdomen without masses or organomegaly noted. There is no rebound or guarding present. Bowel sounds are unremarkable. Back: There is no tenderness to palpation in the midline. There is no obvious deformity. Musculoskeletal: Normal ROM, no tenderness, There is no pedal edema. There is no calf tenderness or swelling. Extremities: No edema. Vascular: Femoral pulse is normal. Posterior tibial pulses are normal .Dorsalis pedis is palpable. Neurological: CN II-XII intact. There are no obvious motor or sensory deficits. Speech is normal. Psychiatric: Cooperative, appropriate mood & affect, normal judgment. Labs show a hemoglobin of 9.9 d-dimer is elevated BUN/creatinine are elevated troponins are elevated Assessment and plan: Acute exacerbation of chronic diastolic heart failure Elevated d-dimer to rule out pulmonary embolism Chronic renal failure History of aortic valve replacement Troponin elevation secondary to renal failure Consult nephrology Check an echocardiogram Check a VQ scan Past Medical History Past Medical History: Cancer, Diabetes Mellitus, Hyperlipidemia, Hypertension, Renal Disease Additional Past Medical History / Comment(s): Bladder cancer post TURB and radiation therapy, AVR 2015 for and he pacemaker insertion, AAA post endovascular stent grafting History of Any Multi-Drug Resistant Organisms: Unobtainable Past Surgical History: Pacemaker Additional Past Surgical History / Comment(s): Abdominal Aortic Aneurysm Type of Cardiac Device: Permanent Pacemaker Device Placement Date:: 12/2020 Past Psychological History: No Psychological Hx Reported Smoking Status: Current every day smoker Past Alcohol Use History: None Reported Past Drug Use History: None Reported Medications and Allergies Home Medications Medication Instructions Recorded Confirmed Type Cholecalciferol [Vitamin D3 (25 25 mcg PO DAILY 02/03/21 02/03/21 History Mcg = 1000 Iu)] Insulin Detemir [Levemir Flextouch 20 units SQ HS 02/03/21 02/03/21 History Pen] Phenazopyridine [Pyridium] 200 mg PO BID 02/03/21 02/03/21 History Tolterodine ER [Detrol LA] 4 mg PO DAILY 02/03/21 02/03/21 History allopurinoL [Zyloprim] 100 mg PO DAILY 02/03/21 02/03/21 History sitaGLIPtin PHOSPHATE [Januvia] 25 mg PO DAILY 02/03/21 02/03/21 History Albuterol Inhaler [Ventolin Hfa 2 puff INHALATION RT-QID PRN #18 gm 02/06/21 Rx Inhaler] Aspirin 81 mg PO DAILY #30 tab 02/06/21 Rx Budesonide-Formot 160-4.5 Mcg 2 puff INHALATION BID #10.2 gm 02/06/21 Rx [Symbicort 160-4.5 Mcg Inhaler] Metoprolol Tartrate [Lopressor] 50 mg PO BID #60 tab 02/06/21 Rx Sodium Bicarbonate Tab 650 mg PO QID #90 tab 02/06/21 Rx Torsemide [Demadex] 20 mg PO DAILY #30 tablet 02/06/21 Rx amLODIPine [Norvasc] 10 mg PO DAILY #30 tab 02/06/21 Rx Allergies Allergy/AdvReac Type Severity Reaction Status Date / Time bee venom protein (honey bee) Allergy Severe Swelling Verified 08/19/21 06:39 Physical Exam Vitals: Vital Signs Temp Pulse Resp BP Pulse Ox 08/19/21 09:01 77 20 130/78 95 08/19/21 08:21 75 20 133/70 96 08/19/21 08:00 89 L 08/19/21 07:41 78 22 128/79 93 L 08/19/21 07:13 79 18 08/19/21 07:04 78 18 08/19/21 06:36 97.8 F 85 18 133/77 94 L Intake and Output 08/18/21 08/19/21 08/19/21 22:59 06:59 14:59 Other: Weight 77.111 kg 77.111 kg Results 08/19/21 07:02 08/19/21 07:02 Cardiac Enzymes 08/19/21 08/19/21 Range/Units 07:02 07:02 AST 14 L (17-59) U/L Troponin I 0.446 H* (0.000-0.034) ng/mL Coagulation 08/19/21 Range/Units 07:02 PT 10.8 (9.0-12.0) sec APTT 32.0 H (22.0-30.0) sec CBC 08/19/21 Range/Units 07:02 WBC 10.0 (3.8-10.6) k/uL RBC 3.15 L (4.30-5.90) m/uL Hgb 9.9 L (13.0-17.5) gm/dL Hct 31.6 L (39.0-53.0) % Plt Count 185 (150-450) k/uL Comprehensive Metabolic Panel 08/19/21 Range/Units 07:02 Sodium 138 (137-145) mmol/L Potassium 4.7 (3.5-5.1) mmol/L Chloride 109 H (98-107) mmol/L Carbon Dioxide 15 L (22-30) mmol/L BUN 66 H (9-20) mg/dL Creatinine 4.37 H (0.66-1.25) mg/dL Glucose 279 H (74-99) mg/dL Calcium 9.0 (8.4-10.2) mg/dL AST 14 L (17-59) U/L ALT 12 (4-49) U/L Alkaline Phosphatase 99 (38-126) U/L Total Protein 7.4 (6.3-8.2) g/dL Albumin 4.1 (3.5-5.0) g/dL Current Medications Generic Name Dose Route Start Last Admin Trade Name Freq PRN Reason Stop Dose Admin Acetaminophen 650 mg 08/19/21 08:45 Acetaminophen Tab 325 Mg Tab PO Q6HR PRN Mild Pain or Fever > 100.5 Aspirin 81 mg 08/20/21 09:00 Aspirin 81 Mg PO DAILY [facility] Heparin Sodium (Porcine) 0 unit 08/19/21 08:01 Heparin Sodium 1,000 Un/Ml (10ml Vl) IV PER PROTOCOL PRN Low PTT Protocol Heparin Sodium/Sodium Chloride 250 mls @ 9.253 mls/hr 08/19/21 08:15 08/19/21 08:17 25,000 unit/ Sodium Chloride IV 12 units/kg/hr .Q24H LUCIO 9.253 mls/hr Administration Protocol 12 UNITS/KG/HR Metoprolol Tartrate 50 mg 08/19/21 21:00 Metoprolol Tartrate 50 Mg Tab PO BID [facility] Naloxone HCl 0.2 mg 08/19/21 08:45 Naloxone 0.4 Mg/Ml 1 Ml Vial IV Q2M PRN Opioid Reversal Intake and Output 08/18/21 08/19/21 08/19/21 22:59 06:59 14:59 Other: Weight 77.111 kg 77.111 kg Patient Weight 08/20/21 06:59 Weight 77.111 kg 08/19/21 07:02 08/19/21 07:02
[2021-08-19 11:57] LABS: Glucose,Whole Blood 345 mg/dL (70-110)
--- NOTE | 2021-08-19 12:14 | P.NPCON ---
History of Present Illness - Reason for Consult chronic renal failure - History of Present Illness Patient is an 86-year-old male with history of COPD, hypertension, type 2 diabetes, aortic valve disease and chronic kidney disease NKF stage V with baseline creatinine around 4 mg/dL. Patient follows with nephrology out of [facility]. During his last admission in February patient had stated that he was not too keen on renal replacement therapy. Next Renal function is currently fairly stable with serum creatinine staying at about 4-4.3 mg/dL. Patient is admitted to the hospital with complaints of shortness of breath. He was treated for pneumonia as outpatient and was on Augmentin and prednisone. Chest x-ray is suggestive of CHF with interstitial edema. Patient reports having had Covid infection about 2 weeks ago and he is currently Covid positive No fever. No significant cough. No nausea or vomiting. Review of Systems As per HPI Past Medical History Past Medical History: Cancer, Diabetes Mellitus, Hyperlipidemia, Hypertension, Renal Disease Additional Past Medical History / Comment(s): Bladder cancer post TURB and radiation therapy, AVR 2014 for and he pacemaker insertion, AAA post endovascular stent grafting History of Any Multi-Drug Resistant Organisms: Unobtainable Past Surgical History: Pacemaker Additional Past Surgical History / Comment(s): Abdominal Aortic Aneurysm Type of Cardiac Device: Permanent Pacemaker Device Placement Date:: 12/2020 Past Psychological History: No Psychological Hx Reported Smoking Status: Current every day smoker Past Alcohol Use History: None Reported Past Drug Use History: None Reported Medications and Allergies Home Medications Medication Instructions Recorded Confirmed Type Cholecalciferol [Vitamin D3 (25 25 mcg PO DAILY 02/03/21 02/03/21 History Mcg = 1000 Iu)] allopurinoL [Zyloprim] 100 mg PO DAILY 02/03/21 02/03/21 History sitaGLIPtin PHOSPHATE [Januvia] 25 mg PO DAILY 02/03/21 02/03/21 History Metoprolol Tartrate [Lopressor] 50 mg PO BID #60 tab 02/06/21 Rx Torsemide [Demadex] 20 mg PO DAILY #30 tablet 02/06/21 Rx Amoxic-Pot Clav 875-125Mg 1 tab PO Q12HR 08/19/21 08/19/21 History [Augmentin 875-125] Budesonide/Formoterol Fumarate 2 puff INHALATION RT-BID 08/19/21 08/19/21 History [Symbicort 80-4.5 Mcg Inhaler] Triazolam [Halcion] 0.25 mg PO HS PRN 08/19/21 08/19/21 History amLODIPine [Norvasc] 5 mg PO DAILY 08/19/21 08/19/21 History methylPREDNISolone Dose Pack See Taper PO DAILY 08/19/21 08/19/21 History [Medrol Dose Pack] Allergies Allergy/AdvReac Type Severity Reaction Status Date / Time bee venom protein (honey bee) Allergy Severe Swelling Verified 08/19/21 12:02 Physical Exam Vitals: Vital Signs Temp Pulse Resp BP Pulse Ox 08/19/21 09:01 77 20 130/78 95 08/19/21 08:21 75 20 133/70 96 08/19/21 08:00 89 L 08/19/21 07:41 78 22 128/79 93 L 08/19/21 07:13 79 18 08/19/21 07:04 78 18 08/19/21 06:36 97.8 F 85 18 133/77 94 L Intake and Output 08/18/21 08/19/21 08/19/21 22:59 06:59 14:59 Other: Weight 77.111 kg 77.111 kg Patient is awake comfortable, not in any acute distress Examination of the heart S1 and S2 Examination lungs bilateral breath sounds are heard Abdomen is soft nontender Examination lower extremities shows trace edema bilaterally F[employer] BU[employer]ER exam grossly intact Results - Lab Results Most recent lab results Calcium 9.0 mg/dL (8.4-10.2) 08/19/21 07:02 Magnesium 2.1 mg/dL (1.6-2.3) 08/19/21 07:02 08/19/21 07:02 08/19/21 07:02 Assessment and Plan Assessment: 1. Chronic kidney disease NKF stage V. Baseline creatinine around 4 mg/dL. Patient follows with nephrology out of [facility] in [place]. He was not too keen on renal replacement therapy during his last admission in February 2021. No indication for dialysis at this time. Ultrasound in February 2021 sh owed markedly right hydronephrosis. This will be repeated. 2. CHF acute on top of chronic, diastolic, currently being diuresed 3. Recent Covid infection 4. History of aortic valve replacement 5. Metabolic acidosis secondary to chronic kidney disease and lactic acidosis 6. Anemia of chronic disease rule out iron deficiency. Plan: Maintain Lasix 40 mg Iv daily Check UA Rule out UTI Check iron profile Check phosphorus Add oral sodium bicarb Check bladder scan rule out urine retention Repeat ultrasound of the kidneys Patient will need follow-up with urology if this has not been addressed before. Patient follows with nephrology out of town in [place]. He was not too keen on renal replacement therapy during his last admission in February Thank you for the consultation. We'll continue to follow the patient with you during his hospitalization
--- NOTE | 2021-08-19 13:16 | NM ---
EXAMINATION TYPE: NM pul perfusion DATE OF EXAM: 08/19/2021 COMPARISON: Chest x-ray 08/19/2021, prior ventilation/perfusion nuclear medicine exam 02/04/2021 HISTORY: Elevated d-dimer, difficulty breathing Following administration of 5.3 mCi Tc 99m MAA. Images obtained post injection. FINDINGS: There is relative homogenous radio from is uptake within the lungs on perfusion scanning. IMPRESSION: Low probability for pulmonary embolus
[2021-08-19] MEDS: CHOLECALCIFEROL 25 MCG (1000 IU) TABLET PO SCH (13:27)
[2021-08-19] MEDS: SODIUM BICARBONATE TAB 650 MG TAB PO SCH ×2 (13:27→20:48)
[2021-08-19] MEDS: INSULIN ASPART (NovoLOG) 100 UNIT/ML VIAL SQ SCH ×3 (13:27→20:48)
--- NOTE | 2021-08-19 14:20 | CA ---
Transthoracic Echo Report Name: Alexis Bower Age: 86 Gender: M : 1935 Exam Date: 08/19/2021 10:58 Exam Location: [place] [facility] Ht (in): 69 Wt (lb): 170 Ordering Physician: Waldemar Alaniz Attending/Referring Phys: Senior Java Developer Halle Boss RDCS Procedure CPT: Indications: Elevated troponin, CHF exacerbation Cardiac Hx: Technical Quality: Fair Contrast 1: Total Dose (mL): Contrast 2: Total Dose (mL): MEASUREMENTS (Male / Female) Normal Values 2D ECHO LV Diastolic Diameter PLAX 4.9 cm 4.2 - 5.9 / 3.9 - 5.3 cm LV Systolic Diameter PLAX 3.7 cm IVS Diastolic Thickness 1.7 cm 0.6 - 1.0 / 0.6 - 0.9 cm LVPW Diastolic Thickness 1.8 cm 0.6 - 1.0 / 0.6 - 0.9 cm LV Relative Wall Thickness 0.7 RV Internal Dim ED PLAX 4.2 cm LA Volume 135.4 cm??? 18 - 58 / 22 - 52 cm??? M-MODE Aortic Root Diameter MM 3.3 cm DOPPLER AV Peak Velocity 229.8 cm/s AV Peak Gradient 21.1 mmHg AV Mean Velocity 148.8 cm/s AV Mean Gradient 10.3 mmHg AV Velocity Time Integral 46.4 cm LVOT Peak Velocity 85.1 cm/s LVOT Peak Gradient 2.9 mmHg MV Peak Velocity 177.0 cm/s MV Peak Gradient 12.5 mmHg MV Mean Velocity 96.5 cm/s MV Mean Gradient 4.3 mmHg MV Velocity Time Integral 37.5 cm MV Area PHT 4.0 cm??? Mitral E Point Velocity 158.8 cm/s Mitral A Point Velocity 80.5 cm/s Mitral E to A Ratio 2.0 MV Deceleration Time 181.5 ms TR Peak Velocity 339.0 cm/s TR Peak Gradient 46.0 mmHg Right Ventricular Systolic Press 48.5 mmHg FINDINGS Left Ventricle Moderately increased left ventricular wall thickness. Left ventricular ejection fraction is estimated at 30-35 %. . Apical septal wall akinesis. Inferior wall is hypokinetic Right Ventricle Normal right ventricular size and function. Moderate pulmonary hypertension. Right Atrium Moderate right atrial dilatation. Catheter/pacemaker wire in the right atrial cavity. Left Atrium Severely increased left atrial volume. No evidence for an atrial septal defect. Mitral Valve Moderate mitral annular calcification. Mitral valve thickened. Moderate-to- severe mitral regurgitation. Aortic Valve Normally functioning bioprosthetic aortic valve without stenosis with a peak velocity of 230 m/s, peak gradient 21 mmHg, mean gradient 10 mmHg. Trace prosthetic aortic valve regurgitation. Tricuspid Valve [id number] tricuspid regurgitation. Pulmonic Valve Trace pulmonic regurgitation. Pericardium No pericardial effusion. Aorta Normal size aortic root and proximal ascending aorta. CONCLUSIONS Ischemic cardiomyopathy with moderate to severe LV dysfunction with an ejection fraction of 35% and hypokinesis involving inferior wall. Moderate to severe mitral regurgitation. Bioprosthetic valve in aortic position with mild aortic stenosis and trace aortic regurgitation Previewed by: Dr. Easton López MD (Electronically Signed) Final Date: 19 August 2021 14:19
[2021-08-19 16:32] LABS: Glucose,Whole Blood 264 mg/dL (70-110)
--- NOTE | 2021-08-19 17:05 | US ---
EXAMINATION TYPE: US kidneys/renal and bladder DATE OF EXAM: 08/19/2021 COMPARISON: 02/05/2021 CLINICAL HISTORY: r hydronephrosis. Hx of right hydro. CKD stage 4. EXAM MEASUREMENTS: Right Kidney: 12.0 x 7.0 x 6.0 cm Left Kidney: 11.3 x 5.0 x 4.7 cm Right Kidney: Anechoic appearance of possible hydronephrosis seen medially measuring 11.2 x 9.3 x 6.3 cm. Hyperechoic focus seen with posterior shadowing 0.9 x 0.7 x 0.3 cm. Left Kidney: Multiple cysts visualized. Largest seen in inferior pole measuring 1.7 x 1.6 x 1.3 cm. Bladder: wnl Bilateral Jets seen: Yes IMPRESSION: There is right-sided hydronephrosis with cortical thinning without change. This involves mainly the u pper pole and could relate to a duplex collecting system with upper collecting system obstruction. Ri ght renal calculus. No evidence of bladder mass. No sign of left renal obstruction. No significant change compared to old exam.
[2021-08-19 20:48] LABS: Glucose,Whole Blood 140 mg/dL (70-110)
[2021-08-19] MEDS: METOPROLOL TARTRATE 50 MG TAB PO SCH (20:48)
[2021-08-19] MEDS: SYMBICORT 80-4.5 MCG INHALER INHALATION SCH (20:49)
--- NOTE | 2021-08-19 22:48 | P.HPIM ---
History of Present Illness H&P Date: 08/19/21 Chief Complaint: SOB Patient is a 86-year-old male with a known history of hypertension, diabetes type 2 insulin-dependent, hyperlipidemia, history of aortic valve replacement in 2015, AAA repair endovascular, history of permanent pacemaker placement presents to ER and CKD with complaints of cough since last . She was seen at urgent care facility and was diagnosed with pneumonia. he was started on Augmentin and prednisone. Patient states that he woke up around 3 AM this morning and was having some shortness of breath which made him to come to ER. Denied any fever or chills. No nausea vomiting abdominal pain or diarrhea. Denied any headache or dizziness or lightheadedness. Chest x-ray on admission showed correlate for possible pulmonary venous hypertension and interstitial edema in a patient with pre-existing COPD, CHF with small effusions similar to prior. EKG showed electronic ventricular paced rhythm. Laboratory data showed WBC 10.0 hemoglobin 9.9 and platelets 185 lymphocyte 0.2 D-dimer is 7.4 Sodium 138 potassium 4.7 chloride 109 bicarb is 15 BUN 66 and creatinine 4.37 Lactic acid 3.4 Troponin 0.446 and 0.425, CRP 1.3, proBNP 65 900 Procalcitonin level is 0.2 On admission patient was afebrile. Pulse ox 94% on room air. Review of Systems Constitutional: Patient denies any fever or chills . Generalized weakness. Abdomen: Patient denied any nausea or vomiting or abd. pain Cardiovascular: Patient denies any chest pain. + short of breath no palpitations. Respiratory: cough with out sputum production. + shortness of breath Neurologic: Patient denied any numbness or tingling headache. Musculoskeletal: Patient denies any complaints of joint swelling or deformity. Skin: Negative Psychiatric: Negative Endocrine: No heat or cold intolerance. No recent weight gain. Genitourinary: No dysuria or hematuria. All other 14 point ROS negative except the above Past Medical History Past Medical History: Cancer, Diabetes Mellitus, Hyperlipidemia, Hypertension, Renal Disease Additional Past Medical History / Comment(s): Bladder cancer post TURB and radiation therapy, AVR 2015 for and he pacemaker insertion, AAA post endovascular stent grafting History of Any Multi-Drug Resistant Organisms: Unobtainable Past Surgical History: Pacemaker Additional Past Surgical History / Comment(s): Abdominal Aortic Aneurysm Type of Cardiac Device: Permanent Pacemaker Device Placement Date:: 12/2020 Past Psychological History: No Psychological Hx Reported Smoking Status: Current every day smoker Past Alcohol Use History: None Reported Past Drug Use History: None Reported Medications and Allergies Home Medications Medication Instructions Recorded Confirmed Type Cholecalciferol [Vitamin D3 (25 25 mcg PO DAILY 02/03/21 08/19/21 History Mcg = 1000 Iu)] allopurinoL [Zyloprim] 100 mg PO DAILY 02/03/21 08/19/21 History sitaGLIPtin PHOSPHATE [Januvia] 25 mg PO DAILY 02/03/21 08/19/21 History Metoprolol Tartrate [Lopressor] 50 mg PO BID #60 tab 02/06/21 08/19/21 Rx Budesonide/Formoterol Fumarate 2 puff INHALATION RT-BID 08/19/21 08/19/21 History [Symbicort 80-4.5 Mcg Inhaler] Triazolam [Halcion] 0.25 mg PO HS PRN 08/19/21 08/19/21 History amLODIPine [Norvasc] 5 mg PO DAILY 08/19/21 08/19/21 History Aspirin 81 mg PO DAILY #30 tab 08/20/21 Rx Furosemide [Lasix] 40 mg PO DAILY #30 tablet 08/20/21 Rx Sodium Bicarbonate Tab 650 mg PO BID #28 tab 08/20/21 Rx cefUROXime axetiL [Cefuroxime] 500 mg PO BID 3 Days #6 tab 08/20/21 Rx Allergies Allergy/AdvReac Type Severity Reaction Status Date / Time bee venom protein (honey bee) Allergy Severe Swelling Verified 08/19/21 12:02 Physical Exam Vitals: Vital Signs Temp Pulse Resp BP Pulse Ox 08/19/21 09:01 77 20 130/78 95 08/19/21 08:21 75 20 133/70 96 08/19/21 08:00 89 L 08/19/21 07:41 78 22 128/79 93 L 08/19/21 07:13 79 18 08/19/21 07:04 78 18 08/19/21 06:36 97.8 F 85 18 133/77 94 L Intake and Output 08/18/21 08/19/21 08/19/21 22:59 06:59 14:59 Other: Weight 77.111 kg 77.111 kg PHYSICAL EXAMINATION: Patient is lying in the bed comfortably, no acute distress, awake alert and oriented.. HEENT: Normocephalic. Neck is supple. Pupils reactive. Nostrils clear. Oral cavity is moist. Neck reveals no JVD, carotid bruits, or thyromegaly. CHEST EXAMINATION: Trachea is central. Symmetrical expansion. Lung lizarraga clear to auscultation and percussion. CARDIAC: Normal S1, S2 with no gallops. No murmurs ABDOMEN: Soft. Bowel sounds present. Nontender. No organomegaly. No abdominal bruits. Extremities: reveal no edema. No clubbing or cyanosis Neurologically awake, alert, oriented x3 with well-coordinated movements. No focal deficits noted Skin: No rash or skin lesions. Psychiatric: Coperative. Nonsuicidal, anxious. Musculoskeletal: No joint swelling or deformity. Normal range of motion. Results CBC & Chem 7: 08/20/21 09:03 08/20/21 09:03 Labs: Abnormal Lab Results - Last 24 Hours (Table) 08/19/21 08/19/21 08/19/21 Range/Units 07:02 07:02 07:02 RBC 3.15 L (4.30-5.90) m/uL Hgb 9.9 L (13.0-17.5) gm/dL Hct 31.6 L (39.0-53.0) % MCV 100.2 H (80.0-100.0) fL Neutrophils # 9.4 H (1.3-7.7) k/uL Lymphocytes # 0.2 L (1.0-4.8) k/uL APTT 32.0 H (22.0-30.0) sec D-Dimer (<0.60) mg/L FEU Chloride 109 H (98-107) mmol/L Carbon Dioxide 15 L (22-30) mmol/L BUN 66 H (9-20) mg/dL Creatinine 4.37 H (0.66-1.25) mg/dL Glucose 279 H (74-99) mg/dL Plasma Lactic Acid Michael (0.7-2.0) mmol/L AST 14 L (17-59) U/L Troponin I (0.000-0.034) ng/mL C-Reactive Protein (<1.0) mg/dL Coronavirus (PCR) (Not Detectd) 08/19/21 08/19/21 08/19/21 Range/Units 07:02 07:02 07:02 RBC (4.30-5.90) m/uL Hgb (13.0-17.5) gm/dL Hct (39.0-53.0) % MCV (80.0-100.0) fL Neutrophils # (1.3-7.7) k/uL Lymphocytes # (1.0-4.8) k/uL APTT (22.0-30.0) sec D-Dimer (<0.60) mg/L FEU Chloride (98-107) mmol/L Carbon Dioxide (22-30) mmol/L BUN (9-20) mg/dL Creatinine (0.66-1.25) mg/dL Glucose (74-99) mg/dL Plasma Lactic Acid Michael 3.4 H* (0.7-2.0) mmol/L AST (17-59) U/L Troponin I 0.446 H* (0.000-0.034) ng/mL C-Reactive Protein 1.3 H (<1.0) mg/dL Coronavirus (PCR) (Not Detectd) 08/19/21 08/19/21 Range/Units 07:02 07:24 RBC (4.30-5.90) m/uL Hgb (13.0-17.5) gm/dL Hct (39.0-53.0) % MCV (80.0-100.0) fL Neutrophils # (1.3-7.7) k/uL Lymphocytes # (1.0-4.8) k/uL APTT (22.0-30.0) sec D-Dimer 7.40 H (<0.60) mg/L FEU Chloride (98-107) mmol/L Carbon Dioxide (22-30) mmol/L BUN (9-20) mg/dL Creatinine (0.66-1.25) mg/dL Glucose (74-99) mg/dL Plasma Lactic Acid Michael (0.7-2.0) mmol/L AST (17-59) U/L Troponin I (0.000-0.034) ng/mL C-Reactive Protein (<1.0) mg/dL Coronavirus (PCR) Detected A (Not Detectd) Thrombosis Risk Factor Assmnt - DVT/VTE Prophylaxis DVT/VTE Prophylaxis: Pharmacologic Prophylaxis ordered - Choose All That Apply Any of the Below Risk Factors Present?: No Assessment and Plan Assessment: Worsening shortness of breath secondary to acute on chronic CHF with systolic and diastolic dysfunction. Ejection fraction 30 to 35%. Troponin elevation likely due to acute CHF and CKD CKD stage V with baseline creatinine around 4.2. Non-anion gap metabolic acidosis Acute COVID-19 infection Possible underlying pneumonia and bacterial Elevated D-dimer level likely due to COVID-19 infection. VQ scan showed low probability for PE. Lactic acidosis Hyperglycemia with uncontrolled diabetes type 2 insulin-dependent History of aortic valve replacement GI and DVT prophylaxis Plan: Patient be continued on telemetry monitoring. Continue with IV Lasix 40 mg daily. Follow-up renal function closely. Patient was started on heparin drip due to elevated troponin level. Cardiology was consulted and 2D echocardiogram was ordered. Continue with aspirin and metoprolol and follow-up lipid panel. Continue to follow closely and prognosis is guarded at this time. Time with Patient: Greater than 30
[2021-08-20] MEDS ORDERED: MELATONIN 3 MG TABLET PO SCH (00:30)
[2021-08-20 00:32] LABS: Appearance,Urine Cloudy (Clear); Bilirubin,Urine Negative (Negative); Blood,Urine Large (Negative); Color,Urine Yellow; Glucose,Urine (UA) 1+ (Negative); Ketones,Urine Negative (Negative); Leukocyte Esterase,Urine Large (Negative); Mucus,Urine Rare /hpf; Nitrite,Urine Negative (Negative); PH, Urine 5.5 (5.0-8.0); Protein,Urine 1+ (Negative); RBC,Urine >182 /hpf (0-5); Specific Gravity,Urine 1.011 (1.001-1.035); Squamous Epithelial Cell,Urine <1 /hpf (0-4); Urobilinogen,Urine <2.0 mg/dL (<2.0); WBC,Urine 32 /hpf (0-5)
[2021-08-20 05:57] LABS: Glucose,Whole Blood 167 mg/dL (70-110)
[2021-08-20] MEDS: INSULIN ASPART (NovoLOG) 100 UNIT/ML VIAL SQ SCH ×2 (06:04→12:09)
[2021-08-20] MEDS: SYMBICORT 80-4.5 MCG INHALER INHALATION SCH (07:26)
[2021-08-20] MEDS: METOPROLOL TARTRATE 50 MG TAB PO SCH (08:22)
[2021-08-20] MEDS: CHOLECALCIFEROL 25 MCG (1000 IU) TABLET PO SCH (08:22)
[2021-08-20] MEDS: SODIUM BICARBONATE TAB 650 MG TAB PO SCH (08:22)
[2021-08-20] MEDS: HEPARIN SOD,PORK IN 0.45% NACL 25,000 UNIT in 0.45% NACL 1 250ML.BAG IV SCH (08:23)
[2021-08-20 08:38] LABS: Glucose,Whole Blood 197 mg/dL (70-110)
[2021-08-20] MEDS ORDERED: FUROSEMIDE 10 MG/ML 4 ML VIAL IV SCH (09:00)
[2021-08-20] MEDS ORDERED: allopurinoL 100 MG TAB PO SCH (09:00)
[2021-08-20] MEDS ORDERED: ASPIRIN 81 MG PO SCH (09:00)
[2021-08-20 09:13] VITALS: TEMP 98.2
--- NOTE | 2021-08-20 09:53 | P.PN ---
Subjective Patient is seen for follow-up for CK D stage V with baseline creatinine around 4 mg/dL. Patient was admitted to the hospital with shortness of breath and weakness He does have a history of "with infection about 2 weeks ago. Patient tested positive for COVID-19 PCR during his hospitalization. Renal function is stable with serum creatinine staying at around 4-4.3 mg/dL. Patient is maintained on gentle diuresis. Overall he states he is feeling better. 24 hour urine output 1.6 L. No urine retention Objective - Vital Signs Vital signs: Vital Signs Temp 98.2 F 08/20/21 08:20 Pulse 67 08/20/21 08:20 Resp 18 08/20/21 08:20 BP 134/61 08/20/21 08:20 Pulse Ox 95 08/20/21 08:20 FiO2 Intake & Output 08/19/21 08/20/21 08/20/21 18:59 06:59 18:59 Intake Total 222.997 Output Total 700 900 Balance -700 -900 222.997 Weight 77.111 kg Intake: Intake, IV Titration 222.997 Amount Heparin Sod,Pork in 0.45% 222.997 NaCl 25,000 unit In 0.45 % NaCl 1 250ml.bag @ 12 UNITS/KG/HR 9.253 mls/hr IV .Q24H [facility] Rx#: [id number] Output: Urine 700 900 Other: Voiding Method Urinal - Exam Awake, comfortable, not in any acute distress Examination of the heart S1 and S2 Examination of the lungs bilateral breath sounds are heard Abdomen is soft nontender Examination of the lower extremity shows no significant edema PUMPER HEAD exam grossly intact - Labs CBC & Chem 7: 08/19/21 07:02 08/19/21 07:02 Labs: Abnormal Lab Results - Last 24 Hours (Table) 08/19/21 08/19/21 08/19/21 Range/Units 07:02 10:29 10:29 APTT (22.0-30.0) sec POC Glucose (mg/dL) (70-110) mg/dL Plasma Lactic Acid Michael 2.7 H* (0.7-2.0) mmol/L Phosphorus (2.5-4.5) mg/dL Troponin I 0.425 H* (0.000-0.034) ng/mL Procalcitonin 0.20 H (0.02-0.09) ng/mL Urine Protein (Negative) Urine Glucose (UA) (Negative) Urine Blood (Negative) Ur Leukocyte Esterase (Negative) Urine RBC (0-5) /hpf Urine WBC (0-5) /hpf Urine Mucus (None) /hpf 08/19/21 08/19/21 08/19/21 Range/Units 10:29 11:55 13:54 APTT 63.3 H (22.0-30.0) sec POC Glucose (mg/dL) 345 H (70-110) mg/dL Plasma Lactic Acid Michael (0.7-2.0) mmol/L Phosphorus 5.2 H (2.5-4.5) mg/dL Troponin I (0.000-0.034) ng/mL Procalcitonin (0.02-0.09) ng/mL Urine Protein (Negative) Urine Glucose (UA) (Negative) Urine Blood (Negative) Ur Leukocyte Esterase (Negative) Urine RBC (0-5) /hpf Urine WBC (0-5) /hpf Urine Mucus (None) /hpf 08/19/21 08/19/21 08/19/21 Range/Units 13:54 16:31 18:23 APTT (22.0-30.0) sec POC Glucose (mg/dL) 264 H (70-110) mg/dL Plasma Lactic Acid Michael 3.0 H* 2.1 H* (0.7-2.0) mmol/L Phosphorus (2.5-4.5) mg/dL Troponin I (0.000-0.034) ng/mL Procalcitonin (0.02-0.09) ng/mL Urine Protein (Negative) Urine Glucose (UA) (Negative) Urine Blood (Negative) Ur Leukocyte Esterase (Negative) Urine RBC (0-5) /hpf Urine WBC (0-5) /hpf Urine Mucus (None) /hpf 08/19/21 08/19/21 08/20/21 Range/Units 20:47 23:55 05:56 APTT (22.0-30.0) sec POC Glucose (mg/dL) 140 H 167 H (70-110) mg/dL Plasma Lactic Acid Michael (0.7-2.0) mmol/L Phosphorus (2.5-4.5) mg/dL Troponin I (0.000-0.034) ng/mL Procalcitonin (0.02-0.09) ng/mL Urine Protein 1+ H (Negative) Urine Glucose (UA) 1+ H (Negative) Urine Blood Large H (Negative) Ur Leukocyte Esterase Large H (Negative) Urine RBC >182 H (0-5) /hpf Urine WBC 32 H (0-5) /hpf Urine Mucus Rare H (None) /hpf 08/20/21 Range/Units 08:35 APTT (22.0-30.0) sec POC Glucose (mg/dL) 197 H (70-110) mg/dL Plasma Lactic Acid Michael (0.7-2.0) mmol/L Phosphorus (2.5-4.5) mg/dL Troponin I (0.000-0.034) ng/mL Procalcitonin (0.02-0.09) ng/mL Urine Protein (Negative) Urine Glucose (UA) (Negative) Urine Blood (Negative) Ur Leukocyte Esterase (Negative) Urine RBC (0-5) /hpf Urine WBC (0-5) /hpf Urine Mucus (None) /hpf Microbiology - Last 24 Hours (Table) 08/19/21 07:34 Blood Culture - Preliminary Blood No Growth after 24 hours 08/19/21 07:25 Blood Culture - Preliminary Blood No Growth after 24 hours Assessment and Plan Assessment: 1. Chronic kidney disease NKF stage V. Baseline creatinine around 4 mg/dL. Patient follows with nephrology out of [facility] in [place]. He was not too keen on renal replacement therapy during his last admission in February 2021. No indication for dialysis at this time. Ultrasound in February 2021 showed markedly right hydronephrosis. This will be repeated. 2. CHF acute on top of chronic, diastolic, currently being diuresed 3. Recent Covid infection 4. History of aortic valve replacement 5. Metabolic acidosis secondary to chronic kidney disease and lactic acidosis 6. Anemia of chronic disease rule out iron deficiency. 7. Pyuria rule out UTI Plan: Maintain Lasix 40 mg Iv daily Check urine culture Check labs today Consult urology Follow-up as outpatient for CK D. No indication to start renal replacement therapy at this time.
[2021-08-20 09:57] LABS: Basophils % (A) 0 %; Eosinophils # (A) 0.1 k/uL (0-0.7); Eosinophils % (A) 1 %; HCT 32.4 % (39.0-53.0); Hypochromasia Moderate; Lymphocytes # (A) 0.5 k/uL (1.0-4.8); Lymphocytes % (A) 6 %; MCH 30.4 pg (25.0-35.0); MCHC 30.7 g/dL (31.0-37.0); Macrocytosis Slight; Mean Platelet Volume 8.3; Monocytes # (A) 0.5 k/uL (0-1.0); Monocytes % (A) 6 %; Neutrophils # (A) 6.8 k/uL (1.3-7.7); Neutrophils % (A) 86 %; Platelet Count 184 k/uL (150-450); RBC 3.27 m/uL (4.30-5.90); RDW 15.5 % (11.5-15.5)
[2021-08-20 10:05] LABS: Potassium 4.8 mmol/L (3.5-5.1)
[2021-08-20 10:06] LABS: Partial Thromboplastin Time 65.2 sec (22.0-30.0); Prothrombin Time 10.8 sec (9.0-12.0)
[2021-08-20] MEDS ORDERED: NICOTINE 21MG/24HR PATCH TRANSDERM SCH (10:15)
[2021-08-20 10:17] LABS: C Reactive Protein 0.8 mg/dL (<1.0)
--- NOTE | 2021-08-20 11:49 | P.GSCN ---
History of Present Illness Consult date: 08/20/21 Reason for Consult: Right-sided hydronephrosis History of present illness: This is an 86-year-old male admitted to the hospital with elevated troponin. Urology is consulted for right-sided hydronephrosis, renal ultrasound was obtained on admission which showed evidence of right upper pole hydronephrosis. Creatinine is a 4.3 which is his baseline. He does have history of CKD. 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 He indicated last stent exchange was approximately 3 months ago. He follows up with Dr. Aranda for management of his hydronephrosis and his bladder cancer, he has a follow-up, and up in 1 week. He denies any gross hematuria, flank pain, or any difficulty voiding. Review of Systems - Constitutional Denies fever, Denies weight loss - EENT Ears, nose, mouth and throat: Denies dysphagia - Cardiovascular Denies chest pain, Denies shortness of breath - Respiratory Denies cough, Denies 7 - Gastrointestinal Reports as per HPI - Genitourinary Denies dysuria, Denies hematuria - Neurological Denies headaches, Denies syncope Past Medical History Past Medical History: Cancer, Diabetes Mellitus, Hyperlipidemia, Hypertension, Renal Disease Additional Past Medical History / Comment(s): Bladder cancer post TURB and radiation therapy, AVR 2014 for and he pacemaker insertion, AAA post endovascular stent grafting History of Any Multi-Drug Resistant Organisms: Unobtainable Past Surgical History: Pacemaker Additional Past Surgical History / Comment(s): Abdominal Aortic Aneurysm Type of Cardiac Device: Permanent Pacemaker Device Placement Date:: 12/2020 Past Psychological History: No Psychological Hx Reported Smoking Status: Current every day smoker Past Alcohol Use History: None Reported Past Drug Use History: None Reported Medications and Allergies Home Medications Medication Instructions Recorded Confirmed Type Cholecalciferol [Vitamin D3 (25 25 mcg PO DAILY 02/03/21 08/19/21 History Mcg = 1000 Iu)] allopurinoL [Zyloprim] 100 mg PO DAILY 02/03/21 08/19/21 History sitaGLIPtin PHOSPHATE [Januvia] 25 mg PO DAILY 02/03/21 08/19/21 History Metoprolol Tartrate [Lopressor] 50 mg PO BID #60 tab 02/06/21 08/19/21 Rx Torsemide [Demadex] 20 mg PO DAILY #30 tablet 02/06/21 08/19/21 Rx Amoxic-Pot Clav 875-125Mg 1 tab PO Q12HR 08/19/21 08/19/21 History [Augmentin 875-125] Budesonide/Formoterol Fumarate 2 puff INHALATION RT-BID 08/19/21 08/19/21 History [Symbicort 80-4.5 Mcg Inhaler] Triazolam [Halcion] 0.25 mg PO HS PRN 08/19/21 08/19/21 History amLODIPine [Norvasc] 5 mg PO DAILY 08/19/21 08/19/21 History methylPREDNISolone Dose Pack See Taper PO DAILY 08/19/21 08/19/21 History [Medrol Dose Pack] Allergies Allergy/AdvReac Type Severity Reaction Status Date / Time bee venom protein (honey bee) Allergy Severe Swelling Verified 08/19/21 12:02 Surgical - Exam Vital Signs Temp Pulse Resp BP Pulse Ox 97.8 F 85 18 133/77 94 L 08/19/21 06:36 08/19/21 06:36 08/19/21 06:36 08/19/21 06:36 08/19/21 06:36 - General no distress, no pain - Eyes normal ocular movement, no pale - ENT normal nares, normal mucosa - Respiratory normal expansion, normal respiratory effort - Abdomen Abdomen: soft, non tender - Psychiatric oriented to time, oriented to person, oriented to place Results - Labs 08/20/21 09:03 08/20/21 09:03 Abnormal Lab Results - Last 24 Hours (Table) 08/19/21 08/19/21 08/19/21 Range/Units 07:02 10:29 11:55 RBC (4.30-5.90) m/uL Hgb (13.0-17.5) gm/dL Hct (39.0-53.0) % MCHC (31.0-37.0) g/dL Lymphocytes # (1.0-4.8) k/uL APTT (22.0-30.0) sec Chloride (98-107) mmol/L Carbon Dioxide (22-30) mmol/L BUN (9-20) mg/dL Creatinine (0.66-1.25) mg/dL Glucose (74-99) mg/dL POC Glucose (mg/dL) 345 H (70-110) mg/dL Plasma Lactic Acid Michael (0.7-2.0) mmol/L Phosphorus 5.2 H (2.5-4.5) mg/dL Procalcitonin 0.20 H (0.02-0.09) ng/mL Urine Protein (Negative) Urine Glucose (UA) (Negative) Urine Blood (Negative) Ur Leukocyte Esterase (Negative) Urine RBC (0-5) /hpf Urine WBC (0-5) /hpf Urine Mucus (None) /hpf 08/19/21 08/19/21 08/19/21 Range/Units 13:54 13:54 16:31 RBC (4.30-5.90) m/uL Hgb (13.0-17.5) gm/dL Hct (39.0-53.0) % MCHC (31.0-37.0) g/dL Lymphocytes # (1.0-4.8) k/uL APTT 63.3 H (22.0-30.0) sec Chloride (98-107) mmol/L Carbon Dioxide (22-30) mmol/L BUN (9-20) mg/dL Creatinine (0.66-1.25) mg/dL Glucose (74-99) mg/dL POC Glucose (mg/dL) 264 H (70-110) mg/dL Plasma Lactic Acid Michael 3.0 H* (0.7-2.0) mmol/L Phosphorus (2.5-4.5) mg/dL Procalcitonin (0.02-0.09) ng/mL Urine Protein (Negative) Urine Glucose (UA) (Negative) Urine Blood (Negative) Ur Leukocyte Esterase (Negative) Urine RBC (0-5) /hpf Urine WBC (0-5) /hpf Urine Mucus (None) /hpf 08/19/21 08/19/21 08/19/21 Range/Units 18:23 20:47 23:55 RBC (4.30-5.90) m/uL Hgb (13.0-17.5) gm/dL Hct (39.0-53.0) % MCHC (31.0-37.0) g/dL Lymphocytes # (1.0-4.8) k/uL APTT (22.0-30.0) sec Chloride (98-107) mmol/L Carbon Dioxide (22-30) mmol/L BUN (9-20) mg/dL Creatinine (0.66-1.25) mg/dL Glucose (74-99) mg/dL POC Glucose (mg/dL) 140 H (70-110) mg/dL Plasma Lactic Acid Michael 2.1 H* (0.7-2.0) mmol/L Phosphorus (2.5-4.5) mg/dL Procalcitonin (0.02-0.09) ng/mL Urine Protein 1+ H (Negative) Urine Glucose (UA) 1+ H (Negative) Urine Blood Large H (Negative) Ur Leukocyte Esterase Large H (Negative) Urine RBC >182 H (0-5) /hpf Urine WBC 32 H (0-5) /hpf Urine Mucus Rare H (None) /hpf 08/20/21 08/20/21 08/20/21 Range/Units 05:56 08:35 09:03 RBC (4.30-5.90) m/uL Hgb (13.0-17.5) gm/dL Hct (39.0-53.0) % MCHC (31.0-37.0) g/dL Lymphocytes # (1.0-4.8) k/uL APTT 65.2 H (22.0-30.0) sec Chloride (98-107) mmol/L Carbon Dioxide (22-30) mmol/L BUN (9-20) mg/dL Creatinine (0.66-1.25) mg/dL Glucose (74-99) mg/dL POC Glucose (mg/dL) 167 H 197 H (70-110) mg/dL Plasma Lactic Acid Michael (0.7-2.0) mmol/L Phosphorus (2.5-4.5) mg/dL Procalcitonin (0.02-0.09) ng/mL Urine Protein (Negative) Urine Glucose (UA) (Negative) Urine Blood (Negative) Ur Leukocyte Esterase (Negative) Urine RBC (0-5) /hpf Urine WBC (0-5) /hpf Urine Mucus (None) /hpf 08/20/21 08/20/21 Range/Units 09:03 09:03 RBC 3.27 L (4.30-5.90) m/uL Hgb 10.0 L (13.0-17.5) gm/dL Hct 32.4 L (39.0-53.0) % MCHC 30.7 L (31.0-37.0) g/dL Lymphocytes # 0.5 L (1.0-4.8) k/uL APTT (22.0-30.0) sec Chloride 108 H (98-107) mmol/L Carbon Dioxide 20 L (22-30) mmol/L BUN 64 H (9-20) mg/dL Creatinine 4.31 H (0.66-1.25) mg/dL Glucose 197 H (74-99) mg/dL POC Glucose (mg/dL) (70-110) mg/dL Plasma Lactic Acid Michael (0.7-2.0) mmol/L Phosphorus (2.5-4.5) mg/dL Procalcitonin (0.02-0.09) ng/mL Urine Protein (Negative) Urine Glucose (UA) (Negative) Urine Blood (Negative) Ur Leukocyte Esterase (Negative) Urine RBC (0-5) /hpf Urine WBC (0-5) /hpf Urine Mucus (None) /hpf Microbiology - Last 24 Hours (Table) 08/19/21 07:34 Blood Culture - Preliminary Blood No Growth after 24 hours 08/19/21 07:25 Blood Culture - Preliminary Blood No Growth after 24 hours Diabetes panel 08/20/21 Range/Units 09:03 Sodium 139 (137-145) mmol/L Potassium 4.8 (3.5-5.1) mmol/L Chloride 108 H (98-107) mmol/L Carbon Dioxide 20 L (22-30) mmol/L BUN 64 H (9-20) mg/dL Creatinine 4.31 H (0.66-1.25) mg/dL Glucose 197 H (74-99) mg/dL Calcium 9.0 (8.4-10.2) mg/dL Calcium panel 08/19/21 08/20/21 Range/Units 10:29 09:03 Calcium 9.0 (8.4-10.2) mg/dL Phosphorus 5.2 H (2.5-4.5) mg/dL Pituitary panel 08/20/21 Range/Units 09:03 Sodium 139 (137-145) mmol/L Potassium 4.8 (3.5-5.1) mmol/L Chloride 108 H (98-107) mmol/L Carbon Dioxide 20 L (22-30) mmol/L BUN 64 H (9-20) mg/dL Creatinine 4.31 H (0.66-1.25) mg/dL Glucose 197 H (74-99) mg/dL Calcium 9.0 (8.4-10.2) mg/dL Adrenal panel 08/20/21 Range/Units 09:03 Sodium 139 (137-145) mmol/L Potassium 4.8 (3.5-5.1) mmol/L Chloride 108 H (98-107) mmol/L Carbon Dioxide 20 L (22-30) mmol/L BUN 64 H (9-20) mg/dL Creatinine 4.31 H (0.66-1.25) mg/dL Glucose 197 H (74-99) mg/dL Calcium 9.0 (8.4-10.2) mg/dL Assessment and Plan Assessment: 86-year-old male with history of muscle invasive bladder cancer and chronic right-sided hydronephrosis. For his hydronephrosis is being managed with a chronic stent exchange, he follows up with Dr. Aranda . Ultrasound on admission showed evidence of persistent hydronephrosis, but his creatinine is stable. He dose have follow up with Dr. Aranda in 1 week. Discussed with him at this point, no further intervention from my , advised to keep follow-up with Dr. Aranda and continue with chronic stent exchange.
[2021-08-20 11:59] LABS: Glucose,Whole Blood 187 mg/dL (70-110)
[2021-08-20 12:26] VITALS: BP 134/65; PULSE 64; RESP 20
--- NOTE | 2021-08-20 14:17 | P.PN ---
Subjective Progress Note Date: 08/20/21 Patient is examined today sitting on the side of the bed without signs of acute distress. He denies chest pain, palpitations, dyspnea, dizziness, syncope, or lower extremity edema. Patient underwent a VQ scan yesterday due to elevated d- dimer which was negative for pulmonary embolism. His echocardiogram showed ischemic cardiomyopathy, a severely decreased LV function with an ejection fraction of 30-35%, with inferior wall hypokinetic, moderate to severe MR, bioprosthetic aortic valve with mild aortic stenosis and a trace of aortic regurgitation. LV is decreased from prior echocardiogram completed in February 2021 which showed a normal LV function. Patient has been seen by nephrology for elevated kidney function. Along with urology. Patient was positive for Covid less than a month ago. Elevated troponins are possibly secondary to kidney disease. He is very anxious to go home and wants to be discharged today. He's been cleared by nephrology and urology. He has an appointment with his sweeper driver in [place] tomorrow morning. In his product responsibility liaison on Saturday. Discussed in detail with patient workup for possible underlying coronary artery disease. At this time he does not wish to go any further testing here and would like to follow up with his own sweeper driver. At this time due to his renal function he is considered high risk and It is recommended that he is medically managed. Continue with aspirin Norvasc and Lopressor. Patient should be started on a statin and imdur. At this time patient may be discharged from a cardiac standpoint and will follow-up with his sweeper driver tomorrow morning. Objective - Vital Signs Vital signs: Vital Signs Temp 98.2 F 08/20/21 08:20 Pulse 64 08/20/21 13:10 Resp 20 08/20/21 12:15 BP 134/65 08/20/21 12:15 Pulse Ox 92 L 08/20/21 12:15 FiO2 Intake & Output 08/19/21 08/20/21 08/20/21 18:59 06:59 18:59 Intake Total 222.997 Output Total 700 900 400 Balance -700 -900 -177.003 Weight 77.111 kg Intake: Intake, IV Titration 222.997 Amount Heparin Sod,Pork in 0.45% 222.997 NaCl 25,000 unit In 0.45 % NaCl 1 250ml.bag @ 12 UNITS/KG/HR 9.253 mls/hr IV .Q24H [facility] Rx#: [id number] Output: Urine 700 900 400 Other: Voiding Method Urinal - Exam PHYSICAL EXAM: VITAL SIGNS: Reviewed. GENERAL: Well-developed in no acute distress. HEENT: Head is normocephalic. Pupils are equal, round. Sclerae anicteric. Mucous membranes of the mouth are moist. NECK: Supple. No JVD or thyromegaly RESPIRATORY: Respirations even and unlabored. Lungs diminished to auscultation bilaterally. CARDIO: Regular rate and rhythm. S1 and S2 heard. No murmur or gallops. EXTREMITIES: Normal range of motion. No clubbing or cyanosis. Peripheral pulses intact. Negative for bilateral lower extremity edema NEURO: Orientated to person, time, mood is appropriate - Labs CBC & Chem 7: 08/20/21 09:03 08/20/21 09:03 Labs: Abnormal Lab Results - Last 24 Hours (Table) 08/19/21 08/19/21 08/19/21 Range/Units 13:54 13:54 16:31 RBC (4.30-5.90) m/uL Hgb (13.0-17.5) gm/dL Hct (39.0-53.0) % MCHC (31.0-37.0) g/dL Lymphocytes # (1.0-4.8) k/uL APTT 63.3 H (22.0-30.0) sec Chloride (98-107) mmol/L Carbon Dioxide (22-30) mmol/L BUN (9-20) mg/dL Creatinine (0.66-1.25) mg/dL Glucose (74-99) mg/dL POC Glucose (mg/dL) 264 H (70-110) mg/dL Plasma Lactic Acid Michael 3.0 H* (0.7-2.0) mmol/L Urine Protein (Negative) Urine Glucose (UA) (Negative) Urine Blood (Negative) Ur Leukocyte Esterase (Negative) Urine RBC (0-5) /hpf Urine WBC (0-5) /hpf Urine Mucus (None) /hpf 08/19/21 08/19/21 08/19/21 Range/Units 18:23 20:47 23:55 RBC (4.30-5.90) m/uL Hgb (13.0-17.5) gm/dL Hct (39.0-53.0) % MCHC (31.0-37.0) g/dL Lymphocytes # (1.0-4.8) k/uL APTT (22.0-30.0) sec Chloride (98-107) mmol/L Carbon Dioxide (22-30) mmol/L BUN (9-20) mg/dL Creatinine (0.66-1.25) mg/dL Glucose (74-99) mg/dL POC Glucose (mg/dL) 140 H (70-110) mg/dL Plasma Lactic Acid Michael 2.1 H* (0.7-2.0) mmol/L Urine Protein 1+ H (Negative) Urine Glucose (UA) 1+ H (Negative) Urine Blood Large H (Negative) Ur Leukocyte Esterase Large H (Negative) Urine RBC >182 H (0-5) /hpf Urine WBC 32 H (0-5) /hpf Urine Mucus Rare H (None) /hpf 08/20/21 08/20/21 08/20/21 Range/Units 05:56 08:35 09:03 RBC (4.30-5.90) m/uL Hgb (13.0-17.5) gm/dL Hct (39.0-53.0) % MCHC (31.0-37.0) g/dL Lymphocytes # (1.0-4.8) k/uL APTT 65.2 H (22.0-30.0) sec Chloride (98-107) mmol/L Carbon Dioxide (22-30) mmol/L BUN (9-20) mg/dL Creatinine (0.66-1.25) mg/dL Glucose (74-99) mg/dL POC Glucose (mg/dL) 167 H 197 H (70-110) mg/dL Plasma Lactic Acid Michael (0.7-2.0) mmol/L Urine Protein (Negative) Urine Glucose (UA) (Negative) Urine Blood (Negative) Ur Leukocyte Esterase (Negative) Urine RBC (0-5) /hpf Urine WBC (0-5) /hpf Urine Mucus (None) /hpf 08/20/21 08/20/21 08/20/21 Range/Units 09:03 09:03 11:56 RBC 3.27 L (4.30-5.90) m/uL Hgb 10.0 L (13.0-17.5) gm/dL Hct 32.4 L (39.0-53.0) % MCHC 30.7 L (31.0-37.0) g/dL Lymphocytes # 0.5 L (1.0-4.8) k/uL APTT (22.0-30.0) sec Chloride 108 H (98-107) mmol/L Carbon Dioxide 20 L (22-30) mmol/L BUN 64 H (9-20) mg/dL Creatinine 4.31 H (0.66-1.25) mg/dL Glucose 197 H (74-99) mg/dL POC Glucose (mg/dL) 187 H (70-110) mg/dL Plasma Lactic Acid Michael (0.7-2.0) mmol/L Urine Protein (Negative) Urine Glucose (UA) (Negative) Urine Blood (Negative) Ur Leukocyte Esterase (Negative) Urine RBC (0-5) /hpf Urine WBC (0-5) /hpf Urine Mucus (None) /hpf Microbiology - Last 24 Hours (Table) 08/19/21 07:34 Blood Culture - Preliminary Blood No Growth after 24 hours 08/19/21 07:25 Blood Culture - Preliminary Blood No Growth after 24 hours Assessment and Plan Assessment: Acute exacerbation of chronic systolic heart failure Elevated d-dimer negative for pulmonary embolism Acute on chronic renal failure History of aortic valve replacement Elevated troponin secondary to renal failure Plan: Discontinue heparin drip Echocardiogram ordered and reviewed Continue on aspirin and Lopressor norvas Recommend he be started on a statin and imdur Patient may be discharged from cardiac standpoint and follow up with his sweeper driver in 24 hours The above impression and plan of care have been discussed and directed by the signing physician. Belkys Schneider, nurse practitioner, acting as scribe for s igning physician.
[2021-08-21 11:23] LABS: % Iron Saturation 17.24 (15.00-50.00)
== END 2021-08-20 15:35 | disposition home or self-care (01) | DRG 291 ==
LOC: SUPCPDRO 06:31 → EC 06:31 → 3SCARD 07:49
PROVIDERS: ADMIT Internal Medicine; ATTEND Internal Medicine
DX: I13.2 Hypertensive heart and chronic kidney disease with heart failure and with stage 5 chronic kidney disease, or end stage renal disease (principal); I50.43 Acute on chronic combined systolic (congestive) and diastolic (congestive) heart failure; J12.82 Pneumonia due to coronavirus disease 2019; U07.1 COVID-19; N18.5 Chronic kidney disease, stage 5; E87.2 Acidosis; J44.0 Chronic obstructive pulmonary disease with (acute) lower respiratory infection; N13.30 Unspecified hydronephrosis; N17.9 Acute kidney failure, unspecified; E11.22 Type 2 diabetes mellitus with diabetic chronic kidney disease; R77.8 Other specified abnormalities of plasma proteins; R09.02 Hypoxemia; D63.1 Anemia in chronic kidney disease; I08.0 Rheumatic disorders of both mitral and aortic valves; Z79.4 Long term (current) use of insulin; R79.1 Abnormal coagulation profile; Z79.84 Long term (current) use of oral hypoglycemic drugs; Z85.51 Personal history of malignant neoplasm of bladder; Z90.6 Acquired absence of other parts of urinary tract; Z92.3 Personal history of irradiation; E11.65 Type 2 diabetes mellitus with hyperglycemia; E78.5 Hyperlipidemia, unspecified; I25.5 Ischemic cardiomyopathy; F17.210 Nicotine dependence, cigarettes, uncomplicated; Z79.51 Long term (current) use of inhaled steroids; Z79.82 Long term (current) use of aspirin; Z79.899 Other long term (current) drug therapy; Z95.0 Presence of cardiac pacemaker; Z95.2 Presence of prosthetic heart valve; Z98.890 Other specified postprocedural states; Z86.79 Personal history of other diseases of the circulatory system; Z91.030 Bee allergy status
CPT/HCPCS: 36415; 71046; 76770; 78580; 80048; 80053; 81001; 82728; 83540; 83550; 83605; 83615; 83735; 83880; 84100; 84145; 84484; 85025; 85379; 85610; 85730; 86140; 87040; 87077; 87086; 87186; 87502; 87635; 93005; 93306; 94640; 94760; 96374; 96375; 99291